=== PATIENT | female | born 1925 | race Caucasian/White ===

== ENCOUNTER 2016-10-28 10:52 | Emergency (ER) | payer OTHER ==
[2016-10-28 11:01] VITALS: TEMP 98.5; BMI 21.4
[2016-10-28] MEDS ORDERED: ACETAMINOPHEN 325 MG TABLET (FP) PO ONE (11:21)
[2016-10-28] MEDS ORDERED: ACETAMINOPHEN 325 MG TABLET (FP) ONE (11:21)
--- NOTE | 2016-10-28 11:41 | PDOC ---
History of Present Illness - General Chief Complaint: Pain, Acute Stated Complaint: RIGHT HAND SWELLING/PAIN Time Seen by Provider: 10/28/16 10:57 History Source: Patient, Family Exam Limitations: No Limitations - History of Present Illness Initial Comments: 10/28/16 11:35 89 yoF with h/o anemia, HTN, CKD ESRD ( MW/F) dialysis here wtih c/o right wrist pain. awoke at 1 this am with acutely swollen and painful right wrist. did not take any pain medication. per pt family at bedside, she has had a history of gout in the past many years ago. pt is unsure with whether she has had gout. no f/c no trauma. no cp or sob. last dialysis was friday ( 3 days ago) chart review of old records shows pt previously on colchicine. Past History - Past Medical History Allergies/Adverse Reactions: Allergies Allergy/AdvReac Type Severity Reaction Status Date / Time No Known Allergies Allergy Verified 10/28/16 10:53 Home Medications: Ambulatory Orders Furosemide [Lasix -] 40 mg PO DAILY 03/28/15 Carvedilol [Coreg] 25 mg PO BID 08/28/15 Sodium Bicarbonate 650 mg PO TID 08/28/15 Hydralazine HCl [Apresoline -] 25 mg PO TID #90 tablet 09/01/15 Prednisone [Deltasone -] 40 mg PO DAILY #7 tablet 10/28/16 Anemia: Yes Asthma: No Cancer: No Cardiac Disorders: Yes CVA: No COPD: No CHF: Yes Dementia: No Diabetes: No Dialysis: Yes GI Disorders: No Disorders: No HTN: Yes Hypercholesterolemia: Yes Kidney Stones: (RENAL INSUFF) Liver Disease: No Seizures: No Thyroid Disease: No Other medical history: DIALYSIS - Surgical History Abdominal Surgery: No Appendectomy: Yes Cardiac Surgery: No Cholecystectomy: No Lung Surgery: No Neurologic Surgery: No Orthopedic Surgery: No - Psycho/Social/Smoking Cessation Hx Anxiety: No Suicidal Ideation: No Smoking History: Never smoked Have you smoked in the past 12 months: No Number of Cigarettes Smoked Daily: 0 Hx Alcohol Use: No Drug/Substance Use Hx: No Substance Use Type: None Hx Substance Use Treatment: No Review of Systems - Review of Systems Constitutional: No: Chills, Diaphoresis, Fever HEENTM: No: Eye Pain Respiratory: No: Cough, Orthopnea, Shortness of Breath Cardiac (ROS): No: Chest Pain, Edema ABD/GI: No: Abdominal Distended : No: Burning, Dysuria Musculoskeletal: Yes: Joint Pain (right wrist pain) Integumentary: No: See HPI, Bruising, Change in Color Neurological: No: Headache, Numbness Psychiatric: No: Anxiety, Depression Hematologic/Lymphatic: Yes: Anemia. No: Symptoms Reported All Other Systems: Reviewed and Negative *Physical Exam - Vital Signs Last Vital Signs Temp Pulse Resp BP Pulse Ox 98.5 F 89 18 187/97 92 L 10/28/16 10:52 10/28/16 10:52 10/28/16 10:52 10/28/16 10:52 10/28/16 10:52 - Physical Exam General Appearance: Yes: Nourished, Appropriately Dressed, Other (awake and alert) HEENT: positive: Normal ENT Inspection, Normal Voice Neck: positive: Trachea midline Respiratory/Chest: positive: Lungs Clear, Normal Breath Sounds Cardiovascular: positive: Regular Rhythm, Regular Rate, S1, S2, Murmur (2/6 systolic murmur) Comments:: 10/28/16 11:38 2 + radial pulses bilaterally Gastrointestinal/Abdominal: positive: Normal Bowel Sounds, Flat, Soft. negative : Tender Musculoskeletal: positive: Other (right wrist wtih C[facility] wrist joint hot, erythematous, painful swollen. fingers n/v intact. elbow NT FROM) Extremity: positive: Normal Capillary Refill, Normal Inspection, Tender (right wrist) Integumentary: positive: Normal Color, Dry, Warm Neurologic: positive: grocery packer II-XII NML intact, Alert, Normal Mood/Affect ED Treatment Course - LABORATORY CBC & Chemistry Diagram: 10/28/16 11:28 10/28/16 11:28 - RADIOLOGY Radiology Studies Ordered: Category Date Time Status WRIST- RIGHT [RAD] Stat Radiology 10/28/16 11:21 Ordered - Medications Given in the ED: ED Medications Discontinued Medications Generic Name Dose Route Start Last Admin Trade Name Freq PRN Reason Stop Dose Admin Acetaminophen 650 mg 10/28/16 11:21 10/28/16 11:28 Tylenol - PO 10/28/16 11:22 650 mg ONCE ONE Administration Medical Decision Making - Medical Decision Making 10/28/16 11:39 89 yo F h/o ESRD, anemia HTN and likley gout ( per family hx and colchicine seen in chart review ) here wtih painful swollen right wrist joint. plan treat with short course of steroids, will avoid nsaids or colchicine due to renal disease. xray crp will confirm ho gout with Dr. Cherry 10/28/16 13:13 xray with degenerative changes. labs uric acid elevated. wbc normal. esr elevated as expected wtih age and gouty inflammation. d/w dr nicole, pt confirmed h/o gout. will start on steroids one week. and followup in office. *DC/Admit/Observation/Transfer Diagnosis at time of Disposition: Gouty arthropathy, unspecified, CKD (chronic kidney disease) stage 5, GFR less than 15 ml/min - Discharge Dispostion Condition at time of disposition: Stable Admit: No - Prescriptions Prescriptions: Prednisone [Deltasone -] 40 mg PO DAILY #7 tablet - Patient Instructions Printed Discharge Instructions: Gout Additional Instructions: take prednisone 40 mg daily x 7 days . this will help decrease the inflammation from gout. you can take tylenol 500 mg every 6 hours as needed for pain. follow up with dr. Nicole. call to schedule.
[2016-10-28 11:43] LABS: BASOPHIL 0.4 % (0-2.0); EOSINOPHIL 0.7 % (0-4.5); MCH 32.3 pg (25.7-33.7); MCHC 33.6 g/dl (32.0-36.0); MEAN CELL VOLUME 96.1 fl (80-96); MEAN PLT VOLUME 6.6 fl (7.5-11.1); NEUTROPHILS 72.9 % (42.8-82.8); PLATELET COUNT 219 K/MM3 (134-434); RDW 14.7 % (11.6-15.6); WHITE BLOOD COUNT 7.5 K/mm3 (4.0-10.8)
[2016-10-28 11:54] LABS: ALBUMIN 3.3 g/dl (3.5-5.0); ALK PHOS 66 U/L (32-92); ANION GAP 13 (8-16); BILIRUBIN,TOTAL 1.3 mg/dl (0.2-1.0); CALCIUM 8.8 mg/dl (8.4-10.2); CO2 20 mmol/L (22-28); COCKROFT - GAULT 4.6835; CREATININE 6.7 mg/dl (0.6-1.3); GLUCOSE,RANDOM 95 mg/dl (74-106); SGOT/AST 9 U/L (10-42); TOT PROT 7.1 g/dl (6.4-8.3); URIC ACID 7.3 mg/dl (2.6-7.2)
[2016-10-28 12:29] LABS: SGPT/ALT < 9 U/L (10-40)
[2016-10-28] MEDS ORDERED: predniSONE 20 MG TABLET (UD) PO ONE (13:08)
[2016-10-28] MEDS ORDERED: predniSONE 20 MG TABLET (UD) ONE (13:15)
[2016-10-28 13:19] VITALS: BP 156/82; PULSE 85
[2016-10-31 14:45] LABS: C-REACTIVE PROTEIN 5.6 MG/DL (0.00-0.3)
== END 2016-10-28 13:26 | disposition home or self-care (01) ==
LOC: FER 10:52
DX: M10.9 Gout, unspecified (principal); I12.0 Hypertensive chronic kidney disease with stage 5 chronic kidney disease or end stage renal disease; N18.5 Chronic kidney disease, stage 5; Z99.2 Dependence on renal dialysis
CPT/HCPCS: 36415; 73110-TC-RT; 80053; 84550; 85025; 85651; 86140; 99283-25

== ENCOUNTER 2016-12-02 20:10 | Emergency (ER) | payer OTHER ==
--- NOTE | 2016-12-02 20:16 | PDOC ---
History of Present Illness - General History Source: Patient Exam Limitations: No Limitations - History of Present Illness Initial Comments: The patient is an 89 yo F with a PMHx of anemia, HTN, CKD, Gout in toes, ESRD ( MW/F) dialysis here who presents with R hand swelling and pain since earlier today. Patient states she went to dialysis today and was referred to ED for possible infection of the R hand. Patient had similar symptoms approximately 1 month ago and was given prednisone for Gout. Patient denies fevers and chills. As per patients granddaughter, patient was started on dialysis approximately 1 year ago. Patient denies abdominal pain, nausea, vomiting and diarrhea. Patient denies changes in appetite. PCP: Dr. Palacios <Brittany Magdaleno - Last Filed: 12/02/16 21:04> <Audrey Bernstein - Last Filed: 12/03/16 00:37> - General Chief Complaint: Redness To Affected Area Stated Complaint: SWELLING TO RIGHT HAND X 2 DAYS Time Seen by Provider: 12/02/16 20:14 Past History <Brittany Magdaleno - Last Filed: 12/02/16 21:04> - Past Medical History Anemia: Yes Asthma: No Cancer: No Cardiac Disorders: Yes CVA: No COPD: No CHF: Yes Dementia: No Diabetes: No Dialysis: Yes GI Disorders: No Disorders: No HTN: Yes Hypercholesterolemia: Yes Kidney Stones: (RENAL INSUFF) Liver Disease: No Seizures: No Thyroid Disease: No - Surgical History Abdominal Surgery: No Appendectomy: Yes Cardiac Surgery: No Cholecystectomy: No Lung Surgery: No Neurologic Surgery: No Orthopedic Surgery: No - Psycho/Social/Smoking Cessation Hx Anxiety: No Suicidal Ideation: No Smoking History: Never smoked Have you smoked in the past 12 months: No Number of Cigarettes Smoked Daily: 0 Hx Alcohol Use: No Drug/Substance Use Hx: No Substance Use Type: None Hx Substance Use Treatment: No <Audrey Bernstein - Last Filed: 12/03/16 00:37> - Past Medical History Allergies/Adverse Reactions: Allergies Allergy/AdvReac Type Severity Reaction Status Date / Time No Known Allergies Allergy Verified 10/28/16 10:53 Home Medications: Ambulatory Orders Calcium Acetate 667 mg PO TIDAC tablet 11/05/16 Clindamycin HCl 300 mg PO TID #21 capsule 12/02/16 Review of Systems - Review of Systems Able to Perform ROS?: Yes Comments:: GENERAL/CONSTITUTIONAL: No fever or chills. No weakness. HEAD, EYES, EARS, NOSE AND THROAT: No change in vision. No ear pain or discharge. No sore throat. CARDIOVASCULAR: No chest pain or shortness of breath. RESPIRATORY: No cough, wheezing, or hemoptysis. GASTROINTESTINAL: No nausea, vomiting, diarrhea or constipation. GENITOURINARY: No dysuria, frequency, or change in urination. MUSCULOSKELETAL: R hand swelling and pain. No neck or back pain. SKIN: No rash NEUROLOGIC: No headache, vertigo, loss of consciousness, or change in strength/ sensation. ENDOCRINE: No increased thirst. No abnormal weight change. HEMATOLOGIC/LYMPHATIC: No anemia, easy bleeding, or history of blood clots. ALLERGIC/IMMUNOLOGIC: No hives or skin allergy. <Brittany Magdaleno - Last Filed: 12/02/16 21:04> *Physical Exam - Vital Signs Last Vital Signs Temp Pulse Resp BP Pulse Ox 97.4 F L 96 H 18 157/79 94 L 12/02/16 20:16 12/02/16 20:16 12/02/16 20:16 12/02/16 20:16 12/02/16 20:16 - Physical Exam Comments: GENERAL: The patient is awake, alert, and fully oriented, in no acute distress. HEAD: Normal with no signs of trauma. EYES: Pupils equal, round and reactive to light, extraocular movements intact, sclera anicteric, conjunctiva clear with no pallor. ENT: Ears normal, nares patent, oropharynx clear without exudates. Moist mucous membranes. NECK: Normal range of motion, supple without lymphadenopathy, JVD, or masses. LUNGS: Breath sounds equal, clear to auscultation bilaterally. No wheeze/ crackles. HEART: Regular rate and rhythm, normal S1 and S2 without murmur or rub. ABDOMEN: Soft/nontender/nondistended. BS wnl. No guarding or rebound. No palpable masses. No hepatosplenomegaly. EXTREMITIES: Normal range of motion, marked edema and erythema distally from distal forearm to fingertips on R hand. Strongly palpable radial pulse at the right wrist. No other inflammation, edema or tenderness in the remainder of the RUE. No clubbing or cyanosis. L hand unremarkable. NEUROLOGICAL: Cranial nerves II through XII grossly intact. Normal speech, gait not assessed. PSYCH: Normal mood, normal affect. SKIN: Warm, Dry, normal turgor, no rashes or lesions noted. <Brittany Magdaleno - Last Filed: 12/02/16 21:04> ED Treatment Course - LABORATORY CBC & Chemistry Diagram: 12/02/16 20:45 12/02/16 20:45 - ADDITIONAL ORDERS Additional order review: 12/02/16 20:45 RBC 3.90 MCV 96.2 H MCHC 34.1 RDW 14.6 MPV 7.1 L Neutrophils % 70.5 Lymphocytes % 18.8 Monocytes % 10.0 Eosinophils % 0.2 Basophils % 0.5 <Brittany Magdaleno - Last Filed: 12/02/16 21:04> - LABORATORY CBC & Chemistry Diagram: 12/02/16 20:45 12/02/16 20:45 <Audrey Bernstein - Last Filed: 12/03/16 00:37> Medical Decision Making - Medical Decision Making Documentation has been prepared under my direction and personally reviewed by me in its entirety. I attest that this documented accurately reflects all work, treatment, procedures and medical decision making performed by me. As noted above, this 89-year-old woman with hypertension and end-stage renal disease, dialyzed today and referred here by dialysis staff with erythema/pain / edema of the right hand. Patient had similar but much milder episode of these symptoms in the right hand/wrist approximately 1 month ago. She was seen here and did well after prednisone therapy for presumed acute gout attack. Current symptoms began today and are not associated with known injury/wound of the right hand or wrist. Patient has no fever/chills. She has a history of previous acute gout in bilateral feet. Exam as noted above. No indication of tenosynovitis or lymphangitis. However, because this episode is somewhat more severe than last month's, CBC/chemistry profile/uric acid/blood culture/lactic acid/CRP were sent Meanwhile, the patient given 500 mg of vancomycin IV for presumed cellulitis. Laboratory values reveal high normal white blood cell count (10,000); chemistry profile notable for mildly decreased potassium level (3.0) and mildly decreased sodium level (127) uric acid is normal at 2.4. Lactic acid is normal at 1.1 and CRP is markedly elevated at 13.9. Although uric acid could have been dialyzed out today with blood level subsequently normal tonight (and gout attack continuing), because the pain and inflammation is more severe as compared to last month's episode, will presume local cellulitis. Patient is improved clinically after vancomycin, with marked improvement in pain and wishes to go home. No evidence of systemic toxicity. Case discussed with Dr. Asencio from [facility] service, covering for Dr. Palacios. Because the patient will be dialyzed again within 36 hours, no supplementation of potassium will be given. Patient will be discharged home in the company of her granddaughter. Prescription for clindamycin 300 mg 3 times a day sent to the patient's pharmacy. No steroid therapy will be instituted now but patient strongly advised to follow -up with Dr. Palacios tomorrow in the office for reevaluation. Meanwhile, if patient develops worsening pain/swelling/redness or develops fever , she should return to the ER <Audrey Bernstein - Last Filed: 12/03/16 00:37> *DC/Admit/Observation/Transfer - Attestations Scribe Attestion: Documentation prepared by Brittany Magdaleno, acting as biomedical engineering technologist for Audrey Bernstein MD/DO. <Brittany Magdaleno - Last Filed: 12/02/16 21:04> <Audrey Bernstein - Last Filed: 12/03/16 00:37> Diagnosis at time of Disposition: Cellulitis of right hand - Discharge Dispostion Disposition: HOME Condition at time of disposition: Stable - Prescriptions Prescriptions: Clindamycin HCl 300 mg PO TID #21 capsule - Referrals Referrals: Maxi Palacios MD [Primary Care Provider] - 24 hours - Patient Instructions Printed Discharge Instructions: DI for Cellulitis -- Adult Additional Instructions: Keep right hand elevated Tylenol as needed for pain Clindamycin 300 mg 3 times a day for [address] Palacios tomorrow as discussed Return to ER immediately if pain/swelling worsens or fever develops
[2016-12-02 20:35] VITALS: BP 157/79; PULSE 96; TEMP 97.4; BMI 23.4
[2016-12-02 20:58] LABS: BASOPHIL 0.5 % (0-2.0); EOSINOPHIL 0.2 % (0-4.5); MCH 32.8 pg (25.7-33.7); MCHC 34.1 g/dl (32.0-36.0); MEAN CELL VOLUME 96.2 fl (80-96); MEAN PLT VOLUME 7.1 fl (7.5-11.1); NEUTROPHILS 70.5 % (42.8-82.8); PLATELET COUNT 199 K/MM3 (134-434); RDW 14.6 % (11.6-15.6)
[2016-12-02 21:08] LABS: ALBUMIN 3.7 g/dl (3.5-5.0); ALK PHOS 81 U/L (32-92); ANION GAP 13 (8-16); BILIRUBIN,TOTAL 1.5 mg/dl (0.2-1.0); CALCIUM 8.8 mg/dl (8.4-10.2); CO2 22 mmol/L (22-28); GLUCOSE,RANDOM 126 mg/dl (74-106); SGOT/AST 15 U/L (10-42); SGPT/ALT 13 U/L (10-40); TOT PROT 7.5 g/dl (6.4-8.3); URIC ACID 2.4 mg/dl (2.6-7.2)
[2016-12-02] MEDS ORDERED: VANCOMYCIN 500 MG in DEXTROSE 5%-WATER - 100 ML IVPB ONE (21:41)
[2016-12-02] MEDS ORDERED: VANCOMYCIN 500 MG VIAL (RESTRICTED TO ID ONLY) ONE (21:46)
[2016-12-02] MEDS ORDERED: ACETAMINOPHEN 325 MG TABLET (FP) PO ONE (23:40)
[2016-12-02] MEDS ORDERED: ACETAMINOPHEN 325 MG TABLET (FP) ONE (23:46)
== END 2016-12-02 23:57 | disposition home or self-care (01) ==
LOC: FER 20:10
DX: L03.113 Cellulitis of right upper limb (principal); I12.0 Hypertensive chronic kidney disease with stage 5 chronic kidney disease or end stage renal disease; N18.6 End stage renal disease; Z99.2 Dependence on renal dialysis; E78.00 Pure hypercholesterolemia, unspecified; D64.9 Anemia, unspecified; I50.9 Heart failure, unspecified
CPT/HCPCS: 36415; 80053; 83605; 84550; 85025; 86140; 87040; 99281-25

== ENCOUNTER 2016-12-05 12:48 | Inpatient (IN) | payer OTHER ==
--- NOTE | 2016-12-05 13:19 | PDOC ---
History of Present Illness - General Chief Complaint: Wound Infection Stated Complaint: WOUND INFECTION Time Seen by Provider: 12/05/16 13:19 - History of Present Illness Initial Comments: The patient is an 89 yo F with a PMHx of anemia, HTN, CKD, Gout, dementia, ESRD (M/W/F) dialysis here who presents with ankle and knee pain with some R hand swelling and pain since Friday. She was seen in the ED on 12/02/16 for right hand swelling then given Clindamycin for presumed cellulitis with noticed decrease in swelling. Since then she has developed bilateral ankle pain R>L and bilateral knee pain L>R . Family at bedside states that she has been bed ridden for the past two days and has been experiencing some chills, nausea, vomiting, decreased appetite, and difficulty ambulating in the setting of her arthralgias. She will be at home alone this morning and has difficulty even sitting up in bed. Her usual gout flares do happen in her ankles and her wrist. She is not on a controlling medication at home. She was not able to attend her dialysis session yesterday because of her joint pain. 12/05/16 14:12 Past History - Past Medical History Allergies/Adverse Reactions: Allergies Allergy/AdvReac Type Severity Reaction Status Date / Time No Known Allergies Allergy Verified 10/28/16 10:53 Home Medications: Ambulatory Orders Calcium Acetate 667 mg PO TIDAC tablet 11/05/16 Clindamycin HCl 300 mg PO TID #21 capsule 12/02/16 Anemia: Yes Asthma: No Cancer: No Cardiac Disorders: Yes CVA: No COPD: No CHF: Yes Dementia: No Diabetes: No Dialysis: Yes GI Disorders: No Disorders: No HTN: Yes Hypercholesterolemia: Yes Kidney Stones: (RENAL INSUFF) Liver Disease: No Seizures: No Thyroid Disease: No - Surgical History Abdominal Surgery: No Appendectomy: Yes Cardiac Surgery: No Cholecystectomy: No Lung Surgery: No Neurologic Surgery: No Orthopedic Surgery: No - Psycho/Social/Smoking Cessation Hx Anxiety: No Suicidal Ideation: No Smoking History: Never smoked Have you smoked in the past 12 months: No Number of Cigarettes Smoked Daily: 0 Hx Alcohol Use: No Drug/Substance Use Hx: No Substance Use Type: None Hx Substance Use Treatment: No Review of Systems - Review of Systems Constitutional: Yes: Chills, Loss of Appetite, Malaise, Weakness HEENTM: No: Blurred Vision, Recent change in vision Respiratory: No: Cough, Orthopnea, Shortness of Breath, Wheezing, Productive cough Cardiac (ROS): Yes: Lightheadedness. No: Chest Pain, Edema, Irregular Heart Rate ABD/GI: Yes: Nausea, Poor Appetite, Vomiting : No: Dysuria, Hematuria, Incontinence Musculoskeletal: Yes: Joint Pain, Joint Swelling, Joint Stiffness Integumentary: Yes: Erythema Neurological: No: Headache, Numbness, Paresthesia *Physical Exam - Physical Exam General Appearance: Yes: Nourished, Appropriately Dressed. No: Apparent Distress HEENT: positive: EOMI, RODRIGO, Normal Voice Neck: positive: Trachea midline, Normal Thyroid Respiratory/Chest: positive: Lungs Clear, Normal Breath Sounds, Other (SATing in mid 90s on room air but apparently her baseline.). negative: Chest Tender, Respiratory Distress, Accessory Muscle Use Cardiovascular: positive: Regular Rhythm, Regular Rate, S1, S2, Murmur, Systolic Murmur. negative: Edema Musculoskeletal: positive: Decreased Range of Motion, Other (TTP in left ankle joint greater than right ankle joint. Swelling and tenderness in left kneee greater than right knee without erythema or fluctuance noticed. ). negative: Normal Inspection Extremity: positive: Other (Swelling in ight hand ith erythema and warmth. Apparently reduced since Friday. No fluctuance. ). negative: Normal Capillary Refill, Normal Inspection, Normal Range of Motion Integumentary: positive: Erythema, Swelling. negative: Rash Neurologic: positive: Fully Oriented, Alert, Other (Has some recall issues consistent with her baseline dmentia. ) ED Treatment Course - LABORATORY CBC & Chemistry Diagram: 12/05/16 14:55 12/05/16 14:55 Medical Decision Making - Medical Decision Making 89 year old on ESRD with right hand cellulitis presenting with new joint pains concerning for gout vs. septic joints. Rectal temp 100 and tachyardic with fevers, chills, nausea, and vomiting. Also has a murmur further concerning for vegetation and therefore endocarditis. No previous echo to corroborate murmur. Patient also unable to care for herself in the current state given lack of home support and ability to ambulae 2/2 joint pain. CBC, BMP, Lactate, CXR< echo only significant for some slight elevation in WBC to 10.9, stable chemistries, normal CXR, relatively normal echo. Patient started on Vanc and, Zosyn after blood cultures sent. Will admit patient for further antibiotic administration and sepsis work up. Handed off to admitting team. 12/05/16 17:26 *DC/Admit/Observation/Transfer Diagnosis at time of Disposition: ESRD needing dialysis, Sepsis - Discharge Dispostion Condition at time of disposition: Stable Admit: Yes Decision to Admit order Date/Time: 12/05/16 17:34
[2016-12-05 13:22] VITALS: BMI 31.2
--- NOTE | 2016-12-05 13:26 | PDOC ---
Attending Attestation - Resident Resident Name: Radha Crouch - HPI HPI: 12/05/16 16:17 Pt presents to the ED complaining of fevers, myalgias and diffuse joint pain. History of ESRD on HD. Recently seen and treated for cellulitis of the R hand with PO antibiotics without improvement. - Physicial Exam PE: 12/05/16 16:30 + erythema and swelling of the R wrist. Full ROM. + swelling of both knees and both ankles with good passive ROM, no erythema and minimal tenderness. - Medical Decision Making 12/05/16 16:34 Pt presents to the ED complaining of fever and diffuse arthralgias. New systolic murmur on exam. Concern for endocarditis, sepsis, less likely PNA or septic joints. Will start broad spectrum antibiotics and admit to medicine. 12/05/16 16:58
[2016-12-05] MEDS ORDERED: PIPERACILLIN/TAZOB 2.25 GM 2.25 GM in DEXTROSE 5%-WATER - 50 ML IVPB SCH ×2 (15:00→22:00)
[2016-12-05] MEDS ORDERED: VANCOMYCIN 1,500 MG in DEXTROSE 5%-WATER - 500 ML IVPB ONE (15:05)
[2016-12-05 15:19] LABS: BASOPHIL 0.2 % (0-2.0); MCH 31.6 pg (25.7-33.7); MCHC 32.4 g/dl (32.0-36.0); MEAN CELL VOLUME 97.4 fl (80-96); MEAN PLT VOLUME 7.4 fl (7.5-11.1); NEUTROPHILS 79.8 % (42.8-82.8); PLATELET COUNT 185 K/MM3 (134-434); RDW 15.7 % (11.6-15.6); WHITE BLOOD COUNT 10.9 K/mm3 (4.0-10.0)
[2016-12-05 15:50] LABS: ALK PHOS 92 U/L (45-117); ANION GAP 13 (8-16); BILIRUBIN,TOTAL 0.6 mg/dL (0.2-1.0); CALCIUM 9.1 mg/dL (8.5-10.1); CO2 22 mmol/L (21-32); CREATININE 7.3 mg/dL (0.55-1.02); GLUCOSE,RANDOM 140 mg/dL (74-106); SGOT/AST 11 U/L (15-37); SGPT/ALT 13 U/L (12-78); TOT PROT 7.4 g/dl (6.4-8.2)
--- NOTE | 2016-12-05 18:09 | HP ---
CHIEF COMPLAINT: Joint pain PCP: Maxi Palacios HISTORY OF PRESENT ILLNESS: 89 y.o F with PMH of anemia, HTN, HLD, gout, dementia, ESRD (M/W/F) on dialysis presenting for 3 day history of right hand, bilateral knee, and bilateral ankle pain. Patient was seen in the ED on 12/02 for her right hand and given clindamycin for presumed cellulitis. After calling the pharmacy, patient never picked up clindamycin. Since then, she has developed bilateral ankle and knee pain. Her right hand pain has not improved. She states the pain has been intermittent, sharp, 10/10, and nonradiating. She takes aspirin, which has not helped. She reports chills, decreased appetite, and increased difficulty ambulating at home. Patient lives at home by herself, with her daughter living next door. She takes care of herself and has had no issues prior to this with ambulation or activities of daily living. ER course was notable for: (1)CXR, Echo (2)CBC, BMP (3)Started on Vancomycin/Zosyn Recent Travel: no PAST MEDICAL HISTORY: As stated above PAST SURGICAL HISTORY: Appendectomy Social History: Smoking: Denies Alcohol: Denies Drugs: Denies Family History: Allergies No Known Allergies Allergy (Verified 10/28/16 10:53) HOME MEDICATIONS: Home Medications Medication Instructions Recorded Calcium Acetate 667 mg PO TIDAC tablet 11/05/16 Clindamycin HCl 300 mg PO TID #21 capsule 12/02/16 REVIEW OF SYSTEMS CONSTITUTIONAL: Absent: fever, diaphoresis, malaise, weight change Present: chills, generalized weakness, loss of appetite HEENT: Absent: rhinorrhea, nasal congestion, throat pain, throat swelling, difficulty swallowing, mouth swelling, ear pain, eye pain, visual changes CARDIOVASCULAR: Absent: chest pain, syncope, palpitations, irregular heart rate, lightheadedness , peripheral edema RESPIRATORY: Absent: cough, shortness of breath, dyspnea with exertion, orthopnea, wheezing, stridor, hemoptysis GASTROINTESTINAL: Absent: abdominal pain, abdominal distension, nausea, vomiting, diarrhea, constipation, melena, hematochezia GENITOURINARY: Absent: dysuria, frequency, urgency, hesitancy, hematuria, flank pain, genital pain MUSCULOSKELETAL: Absent: myalgia, back pain, neck pain Present: arthralgia, joint swelling SKIN: Absent: rash, itching, pallor HEMATOLOGIC/IMMUNOLOGIC: Absent: easy bleeding, easy bruising, lymphadenopathy, frequent infections ENDOCRINE: Absent: unexplained weight gain, unexplained weight loss, heat intolerance, cold intolerance NEUROLOGIC: Absent: headache, focal weakness or paresthesias, dizziness, unsteady gait, seizure, mental status changes, bladder or bowel incontinence PSYCHIATRIC: Absent: anxiety, depression, suicidal or homicidal ideation, hallucinations. PHYSICAL EXAMINATION Vital Signs - 24 hr 12/05/16 12:48 Temperature 100 F H Pulse Rate 106 H Respiratory 18 Rate Blood Pressure 149/113 O2 Sat by Pulse 91 L Oximetry (%) GENERAL: Awake, alert, and fully oriented, in no acute distress. HEAD: Normal with no signs of trauma. EYES: Pupils equal, round and reactive to light, extraocular movements intact, sclera anicteric, conjunctiva clear. No lid lag. EARS, NOSE, THROAT: Oropharynx clear without exudates. Dry mucous membranes NECK: Normal range of motion, supple without lymphadenopathy, JVD, or masses. LUNGS: Breath sounds equal, clear to auscultation bilaterally. No wheezes, and no crackles. No accessory muscle use. HEART: Regular rate and rhythm, normal S1 and S2 +3/6 Systolic ejection murmur, No rub or gallop. ABDOMEN: Soft, nontender, not distended, normoactive bowel sounds, no guarding, no rebound, no masses. No hepatomegaly or splenomegaly. MUSCULOSKELETAL: Decreased range of motion at bilateral knees, ankles, and right hand MCP, PCP joints. +Bony tenderness bilateral knees, ankles, and right hand. UPPER EXTREMITIES: 2+ radial pulses, warm, well-perfused. No cyanosis. No clubbing. No peripheral edema. LOWER EXTREMITIES: 2+ dp pulses, warm, well-perfused. No calf tenderness. No peripheral edema. NEUROLOGICAL: Cranial nerves II-XII intact. Normal speech. No gait observed PSYCHIATRIC: Cooperative. Good eye contact. Appropriate mood and affect. SKIN: Warm, dry, normal turgor Laboratory Results - last 24 hr 12/05/16 12/05/16 12/05/16 14:55 14:55 14:55 WBC 10.9 H D RBC 3.79 Hgb 11.9 D Hct 36.9 D MCV 97.4 H MCH 31.6 MCHC 32.4 RDW 15.7 H Plt Count 185 MPV 7.4 L Neutrophils % 79.8 D Lymphocytes % 7.8 L D Monocytes % 12.2 H Eosinophils % 0.0 D Basophils % 0.2 Sodium 133 L Potassium 4.0 Chloride 98 Carbon Dioxide 22 D Anion Gap 13 BUN 74 H D Creatinine 7.3 H D Creat Clearance w eGFR 5.27 Random Glucose 140 H Lactic Acid 1.3 Calcium 9.1 D Total Bilirubin 0.6 D AST 11 L D ALT 13 D Alkaline Phosphatase 92 D Total Protein 7.4 D Albumin 3.0 L ASSESSMENT/PLAN: 89 year old F with a pmh of anemia, HTN, HLD, gout, dementia, ESRD (M/W/F) on dialysis presenting with 3 day history of joint pain admitted for possible gout #Joint tenderness- possible gout vs pseudogout given multiple joint involvement. Will consider cellulitis and rule it out. -UA -Urine culture -Uric acid level -CRP -ESR -1 dose of 0.6 mg Colchicine -Hand, knee, and ankle x rays ordered -Ortho consulted for possible arthrocentesis -Will hold off antibiotics right now. Patient received vanc/zosyn in the ED. -ID consulted to determine if antibiotics are needed. #ESRD on dialysis -Missed dialysis yesterday -// -Nephro consulted #HTN -Continue lasix 40 mg PO daily -Continue nifidipine ER 60 mg PO daily #HLD -Continue lipitor 10 mg PO hs #Depression -Continue mirtazapine 7.5 mg PO daily #FEN/GI -No fluids -hyponatremia, chronic vs. possible hypervolemic hyponatremia secondary to missed dialysis. Will continue to trend -Sodium controlled diet #PPX DVT-Heparin 5000 units sq Q8, SCDs GI-none #Deconditioning -PT consult placed Visit type - Emergency Visit Emergency Visit: Yes ED Registration Date: 12/05/16 Care time: The patient presented to the Emergency Department on the above date and was hospitalized for further evaluation of their emergent condition. - New Patient This patient is new to me today: Yes Date on this admission: 12/05/16 - Critical Care Critical Care patient: No
[2016-12-05] MEDS ORDERED: COLCHICINE 0.6 MG TABLET (FP) PO ONE ×2 (18:22→20:30)
--- NOTE | 2016-12-05 18:22 | PN ---
Teaching Attending Note Name of Resident: Malcolm Farias ATTENDING PHYSICIAN STATEMENT I saw and evaluated the patient. I reviewed the resident's note and discussed the case with the resident. I agree with the resident's findings and plan as documented. SUBJECTIVE: This is an 89-year-old woman with a history of HTN, hyperlipidemia, dementia, gout, ESRD on HD, anemia who comes to the ER for joint pains. She had been seen in the ER on 12/02 for right hand pain and she was prescribed Clindamycin for cellulitis. She did not fill the prescription. Since then, she has developed pain in her knees and ankles. OBJECTIVE: Vital Signs Period Temp Pulse Resp BP Sys/Wing Pulse Ox Last 24 Hr 100 F 106 18 149/113 91 HEART: S1S2, tachycardic LUNGS: CLEAR ABDOMEN: Soft, non-tender, non-distended, normal BS EXTREMITIES: No edema JOINTS: Swelling without erythema or tenderness of right 2nd, 3rd, 4th MCP joints. Swelling without erythema of both knees. Left knee extremely tender to light touch. Minimal tenderness of right knee. No swelling or erythema of ankles. Minimal tenderness of both ankles. ASSESSMENT AND PLAN: This is an 89-year-old woman with a history of HTN, hyperlipidemia, dementia, gout, ESRD on HD, anemia who presented to the ER with pain in her right hand, both knees and both ankles. 1. Polyarticular arthritis - Not typical presentation of gout - Possible pseudogout - Check uric acid, ESR, C-RP, JOSHUA, RF - Colchicine 0.6 mg PO x 1 - Check x-rays of right hand, both knees, both ankles - Does not appear to be infectious - Hold antibiotics - Arthrocentesis of knee 2. HTN - Continue Nifedipine, Lasix 3. Hyperlipidemia - Continue Lipitor 4. ESRD - Continue HD 5. Dementia with depression - Continue Remeron
--- NOTE | 2016-12-05 18:32 | HP ---
Admitting History and Physical - Primary Care Physician PCP: Maxi Palacios M - Admission Chief Complaint: joint pain and right hand redness History of Present Illness: 89F PMH of anemia, HTN, HLD, gout, dementia, ESRD on dialysis M/W/F presenting for 3 day history of right hand, bilateral knee, and bilateral ankle pain. Patient was seen in the ED on 12/02 for her right hand and given clindamycin for presumed cellulitis but patient never took it. Patient has now developed excrutiating 10/10 pain in the right hand bilaterral knees and bilateral ankles. She endorses chills, difficulty walking at home, and worsening pain in her joints. She states her hand erythema and swelling has improved despite not picking up the antibiotics from the pharmacy. Patient lives at home by herself and astates she is able to cook clean and shower herself. her daughter lives next door to her. She denies all other symptoms. History Source: Patient, Medical Record Limitations to Obtaining History: Clinical Condition - Past Medical History Cardiovascular: Yes: HTN, Hyperlipdemia Renal/: Yes: Renal Failure, Renal Calculi Heme/Onc: Yes: Anemia - Past Surgical History Past Surgical History: Yes: Appendectomy, Tonsillectomy - Smoking History Smoking history: Never smoked Have you smoked in the past 12 months: No Aproximately how many cigarettes per day: 0 - Alcohol/Substance Use Hx Alcohol Use: No Home Medications - Allergies Allergies/Adverse Reactions: Allergies Allergy/AdvReac Type Severity Reaction Status Date / Time No Known Allergies Allergy Verified 10/28/16 10:53 - Home Medications Home Medications: Ambulatory Orders Clindamycin HCl 300 mg PO TID #21 capsule 12/02/16 Nifedipine ER [Procardia Xl -] 60 mg PO DAILY 12/05/16 Family Disease History - Family Disease History Family Disease History: Other: Son (patient reports her son recently, but unclear as to cause) Review of Systems - Review of Systems Constitutional: reports: Chills, Loss of Appetite, Malaise Eyes: reports: No Symptoms HENT: reports: No Symptoms Neck: reports: No Symptoms Cardiovascular: reports: No Symptoms Respiratory: reports: No Symptoms Gastrointestinal: reports: No Symptoms Genitourinary: reports: No Symptoms Breasts: reports: No Symptoms Reported Musculoskeletal: reports: Joint Pain, Joint Swelling Integumentary: reports: Erythema (right hand) Physical Examination Vital Signs: Vital Signs Temperature 100 F H 12/05/16 12:48 Pulse Rate 106 H 12/05/16 12:48 Respiratory Rate 18 12/05/16 12:48 Blood Pressure 149/113 12/05/16 12:48 O2 Sat by Pulse Oximetry (%) 91 L 12/05/16 12:48 Constitutional: Yes: No Distress Eyes: Yes: EOM Intact HENT: Yes: Atraumatic, Normocephalic Neck: Yes: Supple, Trachea Midline Cardiovascular: Yes: Regular Rate and Rhythm, Murmur Respiratory: Yes: Regular, CTA Bilaterally Gastrointestinal: Yes: Normal Bowel Sounds, Soft. No: Tenderness Renal/: Yes: WNL Breast(s): Yes: WNL Musculoskeletal: Yes: Joint Swelling (RUE MCP and PIP joint swelling) Extremities: Yes: Erythema (right hand with swelling), Other (tenderness of right hand bilateral knees and bilateral ankles) Neurological: Yes: Alert Psychiatric: Yes: Alert Imaging - Results Chest X-ray: Report Reviewed, Image Reviewed Assessment/Plan 89 year old F with a pmh of anemia, HTN, HLD, gout, dementia, ESRD (M/W/F) on dialysis presenting with 3 day history of joint pain admitted for possible gout. Problem list: polyarthralgia gout vs pseudogout exacerbation ESRD on HD HTN HLD Depressin Hyponatremia Hyervolemic hypernatremia Admit to med/surg UA/Urine culture Uric acid level CRP/ESR 1 dose of 0.6 mg Colchicine-as patient is ESRD Hand, knee, and ankle x rays ordered Ortho consulted for possible arthrocentesis Will hold off antibiotics right now. Patient received vanc/zosyn in the ED. ID consulted to determine if antibiotics are needed. Nephrology consult for dialysis cotninue lasix continue nifedepine continue lipitor DVT PPx PT consult continue mirtazepine pain control PRN Case discussed with attending and medical team. Full H&P to follow Visit type - Emergency Visit Emergency Visit: Yes ED Registration Date: 12/05/16 Care time: The patient presented to the Emergency Department on the above date and was hospitalized for further evaluation of their emergent condition. - New Patient This patient is new to me today: Yes Date on this admission: 12/05/16 - Critical Care Critical Care patient: No
[2016-12-05 18:51] LABS: URIC ACID 5.6 mg/dL (2.6-7.2)
[2016-12-05 18:55] LABS: C-REACTIVE PROTEIN 23.9 MG/DL (0.00-0.3)
[2016-12-05] MEDS: ATORVASTATIN CA 10 MG TABLET (FP) PO SCH (21:24)
[2016-12-05] MEDS: MIRTAZAPINE 15 MG TABLET (FP) PO SCH (21:25)
[2016-12-06] MEDS ORDERED: PIPERACILLIN/TAZOB 2.25 GM/50 ML PRE-DOCKED BAG IVPB ONE (03:00)
[2016-12-06] MEDS: HEPARIN NA (PORCINE) 5,000 UNITS/ML 1ML VIAL SQ SCH ×3 (03:12→17:51)
[2016-12-06 07:43] LABS: MCH 32.7 pg (25.7-33.7); MCHC 33.5 g/dl (32.0-36.0); MEAN CELL VOLUME 97.8 fl (80-96); MEAN PLT VOLUME 7.3 fl (7.5-11.1); PLATELET COUNT 176 K/MM3 (134-434); RDW 15.6 % (11.6-15.6); WHITE BLOOD COUNT 10.6 K/mm3 (4.0-10.0)
[2016-12-06 08:02] LABS: ALBUMIN 2.6 g/dl (3.4-5.0)
[2016-12-06 08:15] LABS: ALK PHOS 85 U/L (45-117); ANION GAP 16 (8-16); BILIRUBIN,TOTAL 0.9 mg/dL (0.2-1.0); CALCIUM 8.4 mg/dL (8.5-10.1); CO2 22 mmol/L (21-32); GLUCOSE,RANDOM 89 mg/dL (74-106); MAGNESIUM 2.6 mg/dL (1.8-2.4); PHOSPHOROUS 5.9 mg/dL (2.5-4.9); SGOT/AST 14 U/L (15-37); SGPT/ALT 12 U/L (12-78); TOT PROT 6.8 g/dl (6.4-8.2)
--- NOTE | 2016-12-06 08:26 | PN ---
Progress Note, Physician Chief Complaint: ID Full note dictated ESRD with polyarticuliar joint pains right wrist left knee and bilateral ankles - Current Medication List Current Medications: Active Medications Atorvastatin Calcium (Lipitor -) 10 mg PO HS PIERCE Last Admin: 12/05/16 21:24 Dose: 10 mg Furosemide (Lasix -) 40 mg PO DAILY PIERCE Heparin Sodium (Porcine) (Heparin -) 5,000 unit SQ Q8H-IV PIERCE Last Admin: 12/06/16 03:12 Dose: 5,000 unit Piperacillin Sod/Tazobactam (Sod 2.25 gm/ Dextrose) 50 mls @ 100 mls/hr IVPB BID PIERCE PRN Reason: Protocol Mirtazapine (Remeron -) 7.5 mg PO HS PIERCE Last Admin: 12/05/16 21:25 Dose: 7.5 mg Nifedipine (Procardia Xl -) 60 mg PO DAILY PIERCE - Objective Vital Signs: Vital Signs Temperature 98.2 F 12/06/16 07:52 Pulse Rate 76 12/06/16 07:52 Respiratory Rate 18 12/06/16 07:52 Blood Pressure 136/67 12/06/16 07:52 O2 Sat by Pulse Oximetry (%) 100 12/05/16 22:35 Constitutional: Yes: No Distress Labs: CBC, BMP 12/06/16 06:00 Problem List - Problems (1) ESRD needing dialysis Code(s): N18.6 - END STAGE RENAL DISEASE (2) Acute gout Code(s): M10.9 - GOUT, UNSPECIFIED (3) Endocarditis Code(s): I38 - ENDOCARDITIS, VALVE UNSPECIFIED Assessment/Plan Microbiology Laboratory Tests 12/05/16 12/05/16 12/05/16 14:55 14:55 15:12 WBC 10.9 H D RBC 3.79 Hct 36.9 D Plt Count 185 ESR Uric Acid 5.6 Total Bilirubin 0.6 D AST 11 L D ALT 13 D Alkaline Phosphatase 92 D C-Reactive Protein 23.9 H D 12/05/16 15:12 WBC RBC Hct Plt Count ESR 117 H Uric Acid Total Bilirubin AST ALT Alkaline Phosphatase C-Reactive Protein Assessment Suspect acute gouty arthritis rather then endocarditis Plan JOSHUA Latex Rheumatology consult and aspirate her knee crystals and cultures NO antibiotics Blood neg this am ECHO Given steroids Bandar RAO
[2016-12-06 09:44] LABS: CREATININE 7.9 mg/dL (0.55-1.02)
[2016-12-06] MEDS: FUROSEMIDE 40 MG TABLET (FP) PO SCH (10:16)
[2016-12-06] MEDS: methylPREDNISolone NA SUCC 40 MG/1 ML VIAL IVPB SCH ×3 (10:16→17:01)
[2016-12-06] MEDS: NIFEdipine E.R 60 MG TABLET (UD) PO SCH (10:16)
--- NOTE | 2016-12-06 10:18 | CON.NEP ---
Consult Consult Specialty:: nephrology Reason for Consultation:: esrd - History of Present Illness Chief Complaint: cant walk History of Present Illness: This is am 89 year old lady with a PMHx of anemia, HTN, CKD, Gout, dementia, ESRD (M/W/F) dialysis. She is a poor historian and is unable to tell me much. She however complains of inability to walk and apparently has been having pain in her hands and feet. She denies other complaints and appears comfortable otherwise - History Source History Provided By: Medical Record Limitations to Obtaining History: Dementia - Past Medical History Cardio/Vascular: Yes: HTN, Hyperlipdemia Renal/: Yes: Renal Failure, Renal Calculi - Past Surgical History Past Surgical History: Yes: Appendectomy, Tonsillectomy - Alcohol/Substance Use Hx Alcohol Use: No - Smoking History Smoking history: Never smoked Have you smoked in the past 12 months: No Aproximately how many cigarettes per day: 0 Home Medications - Allergies Allergies/Adverse Reactions: Allergies Allergy/AdvReac Type Severity Reaction Status Date / Time No Known Allergies Allergy Verified 10/28/16 10:53 - Home Medications Home Medications: Ambulatory Orders Clindamycin HCl 300 mg PO TID #21 capsule 12/02/16 Nifedipine ER [Procardia Xl -] 60 mg PO DAILY 12/05/16 Family Disease History - Family Disease History Family Disease History: Other: Son (patient reports her son recently, but unclear as to cause) Review of Systems Unable to obtain ROS, reason: dementia - Review of Systems Constitutional: reports: No Symptoms Eyes: reports: No Symptoms HENT: reports: No Symptoms Neck: reports: No Symptoms Cardiovascular: reports: No Symptoms Respiratory: reports: No Symptoms Gastrointestinal: reports: No Symptoms Genitourinary: reports: No Symptoms Breasts: reports: No Symptoms Reported Musculoskeletal: reports: Joint Pain, Joint Swelling Integumentary: reports: No Symptoms Neurological: reports: No Symptoms Endocrine: reports: No Symptoms Hematology/Lymphatic: reports: No Symptoms Psychiatric: reports: No Symptoms Nephrology Consult - Height Height: 5 ft - Weight Weight: 160 lb - BMI Body Mass Index (BMI): 31.2 - Lab Results CBC,BMP: CBC, BMP 12/06/16 06:00 12/06/16 06:00 Anion Gap: Anion Gap Anion Gap 16 (8-16) 12/06/16 06:00 - Imaging Chest X-ray: Report Reviewed - Physical Examination Vital Signs: Vital Signs Temperature 98.2 F 12/06/16 09:00 Pulse Rate 85 12/06/16 09:00 Respiratory Rate 18 12/06/16 09:00 Blood Pressure 139/58 12/06/16 09:00 O2 Sat by Pulse Oximetry (%) 100 12/05/16 22:35 Constitutional: Yes: Well Nourished, No Distress Eyes: Yes: Conjunctiva Clear HENT: Yes: Atraumatic, Normocephalic Neck: Yes: Supple, Trachea Midline Cardiovascular: Yes: Regular Rate and Rhythm, Murmur. 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
--- NOTE | 2016-12-06 10:21 | EKG ---
Test Reason : Blood Pressure : / mmHG Vent. Rate : 104 BPM Atrial Rate : 104 BPM P-R Int : 132 ms QRS Dur : 092 ms QT Int : 346 ms P-R-T Axes : 039 -07 017 degrees QTc Int : 454 ms SINUS TACHYCARDIA POSSIBLE LEFT ATRIAL ENLARGEMENT NONSPECIFIC ST AND T WAVE ABNORMALITY Confirmed by MD FRANCISCO, PRAVEEN ([id number]) on 12/06/2016 10:20:57 AM Referred By: Confirmed By:PRAVEEN SINGH MD
--- NOTE | 2016-12-06 13:48 | PN ---
Teaching Attending Note Name of Resident: Malcolm Farias ATTENDING PHYSICIAN STATEMENT I saw and evaluated the patient. I reviewed the resident's note and discussed the case with the resident. I agree with the resident's findings and plan as documented. SUBJECTIVE: Patient complains of pain in her hands and knees. OBJECTIVE: Vital Signs Period Temp Pulse Resp BP Sys/Wing Pulse Ox Last 24 Hr 98.2 F-98.9 F 76-87 18-18 130-140/58-76 94-100 HEART: S1S2, RRR LUNGS: Clear ABDOMEN: Soft, non-tender, non-distended, normal BS EXTREMITIES: No edema JOINTS: Decreased swelling of right 2nd, 3rd, 4th MCP joints. Swelling without erythema of both knees. Left knee tender to minimal touch. No tenderness of right knee. No swelling, erythema or tenderness of ankles ASSESSMENT AND PLAN: This is an 89-year-old woman with a history of HTN, hyperlipidemia, dementia, gout, ESRD on HD, anemia who presented to the ER with pain in her right hand, both knees and both ankles. 1. Polyarticular arthritis - Does not appear to be infectious - Hold antibiotics - Uric acid normal - ESR 117 (102 on 10/28/16), C-RP 23.9 (14.6 on 12/02/16, 5.6 on 10/28/16), RF negative - Check JOSHUA - Given Colchicine 0.6 mg PO x 1 - SoluMedrol started - X-rays of right hand show mild to moderate osteoarthritis and mild soft tissue swelling - X-rays of left knee show mild to moderate osteoarthritis with suprapatellar soft tissue swelling and possible joint effusion - X-rays of right knee show mild to moderate osteoarthritis - X-rays of right ankle show osteopenia - X-rays of left ankle show possible non-displaced posterior tibial fracture - Orthopedic surgery, rheumatology consults - Possible arthrocentesis of left knee 2. HTN - Continue Nifedipine, Lasix 3. Hyperlipidemia - Continue Lipitor 4. ESRD - Continue HD 5. Dementia with depression - Continue Remeron
--- NOTE | 2016-12-06 15:10 | CONS ---
DATE OF CONSULTATION: DATE OF DICTATION: 12/06/2016 INFECTIOUS DISEASE CONSULTATION HISTORY OF PRESENT ILLNESS: This is an 89-year-old female with known end-stage renal disease, whom I am asked to see with a 3 to 4 day history of polyarticular joint pains. She was apparently seen on December 02 in the Emergency Department for swelling and presumed "cellulitis of the right wrist," for which she was given a prescription for clindamycin. Subsequently she developed bilateral ankle and knee pains, and the right hand continued to be painful as well. The patient denied any fever and had only 1 temperature of 100 degrees on admission. Subsequently she has been afebrile. She is a poor historian, who currently notes no complaints of any kind. She denies any chills, abdominal pain, urinary complaints, and is on dialysis 3 times a week through a fistula in her left arm. A set of blood cultures was obtained on admission, and she was given a dose of vancomycin and Zosyn, and I am asked to see her for further evaluation and treatment. Note that according to the admitting history, she has a prior history of gout as well as dementia. PAST MEDICAL HISTORY: As noted above. CURRENT MEDICATIONS: Procardia, Remeron, Lasix. ALLERGIES: None known. SOCIAL HISTORY: Lives at home. No history of alcohol use. Nonsmoker. FAMILY HISTORY: Patient unable to offer. REVIEW OF SYSTEMS: Respiratory: No cough, shortness of breath or hemoptysis. Cardiac: No chest pain, palpitations or syncope. Gastrointestinal: No nausea, vomiting, abdominal pain, diarrhea, blood per rectum. Genitourinary: End-stage renal disease. No dysuria, hematuria or incontinence. PHYSICAL EXAMINATION: General: She was an alert pleasant woman in no acute distress. Vital Signs: Temperature 98.2, pulse 76, blood pressure 136/67, respirations 18. HEENT: Conjunctivae clear, with no conjunctival petechiae noted. Neck: Supple. Lungs: Clear to auscultation. Heart: S1, S2, with a grade 3/6 systolic ejection murmur, heard best at the lower left sternal border, right 2nd intercostal space. Abdomen: Soft, nontender, without hepatosplenomegaly. Extremities: Swelling of the left knee, with tenderness. Right wrist tenderness, swelling and redness. Bilateral mild ankle swelling with bilateral tenderness. DIAGNOSTIC STUDIES: White count 10.9, hemoglobin 11.9, platelets 185, ESR 117. BUN 74, creatinine 7.3. Liver enzymes within normal limits. CRP 24. Uric acid 5.6. Two sets of blood cultures pending, no growth. ASSESSMENT: Acute gouty arthritis suspected, less likely endocarditis given the multiple joints involved. Certainly she is at high risk for bacteremia and endocarditis being on dialysis, but thus far her blood cultures are no growth and she has no fever at this time. RECOMMENDATIONS: I would not give her any antibiotics at the current time. Instead will treat her for gout with a dose of steroids to begin, and get Rheumatology evaluation, to consider aspiration of the left knee to document gouty arthritis. An JOSHUA and latex will be obtained. NING CALHOUN M.D. JENNIFER/[id number]
--- NOTE | 2016-12-06 16:33 | PN ---
Physical Exam: SUBJECTIVE: Patient seen and examined No acute events overnight. Patient is poor historian. OBJECTIVE: Vital Signs Period Temp Pulse Resp BP Sys/Wing Pulse Ox Last 24 Hr 98.1 F-98.9 F 76-87 17-18 130-140/58-76 94-100 GENERAL: Awake, alert, and fully oriented, in no acute distress. HEAD: Normal with no signs of trauma. EYES: Extraocular movements intact, sclera anicteric, conjunctiva clear. No lid lag. EARS, NOSE, THROAT: Oropharynx clear without exudates. Dry mucous membranes NECK: Normal range of motion, supple without lymphadenopathy, JVD, or masses. LUNGS: Breath sounds equal, clear to auscultation bilaterally. No wheezes, and no crackles. No accessory muscle use. HEART: Regular rate and rhythm, normal S1 and S2 +3/6 Systolic ejection murmur, No rub or gallop. ABDOMEN: Soft, nontender, not distended, normoactive bowel sounds, no guarding, no rebound, no masses. No hepatomegaly or splenomegaly. MUSCULOSKELETAL: Decreased range of motion at bilateral knees, ankles, and right hand MCP, PCP joints. +Bony tenderness bilateral knees, ankles, and right hand. R hand- +Erythema and warmth UPPER EXTREMITIES: 2+ radial pulses, warm, well-perfused. No cyanosis. No clubbing. No peripheral edema. LOWER EXTREMITIES: 1+ dp pulses, warm, well-perfused. No calf tenderness. No peripheral edema. NEUROLOGICAL: Cranial nerves II-XII intact. Normal speech. No gait observed PSYCHIATRIC: Cooperative. Good eye contact. Appropriate mood and affect. SKIN: Warm, dry, normal turgor Laboratory Results - last 24 hr 12/06/16 12/06/16 12/06/16 06:00 06:00 06:00 WBC 10.6 H RBC 3.52 L Hgb 11.5 Hct 34.4 MCV 97.8 H MCH 32.7 MCHC 33.5 RDW 15.6 Plt Count 176 MPV 7.3 L Sodium 135 L Potassium 4.1 Chloride 97 L Carbon Dioxide 22 Anion Gap 16 BUN 81 H Creatinine 7.9 H* Creat Clearance w eGFR 4.81 Random Glucose 89 D Calcium 8.4 L Phosphorus 5.9 H Magnesium 2.6 H D Total Bilirubin 0.9 D AST 14 L D ALT 12 Alkaline Phosphatase 85 Total Protein 6.8 Albumin 2.6 L Rheumatoid Factor < 10.0 Cancelled Active Medications Generic Name Dose Route Start Last Admin Trade Name No PRN Reason Stop Dose Admin Atorvastatin Calcium 10 mg 12/05/16 22:00 12/05/16 21:24 Lipitor - PO 10 mg HS PIERCE Administration Furosemide 40 mg 12/06/16 10:00 12/06/16 10:16 Lasix - PO 40 mg DAILY PIERCE Administration Heparin Sodium (Porcine) 5,000 unit 12/06/16 02:00 12/06/16 10:16 Heparin - SQ 5,000 unit Q8H-IV PIERCE Administration Heparin Sodium (Porcine) 1,000 unit 12/06/16 10:32 Heparin - IVPUSH 12/06/16 10:33 ONCE ONE Methylprednisolone Sodium Succinate 40 mg 12/06/16 10:00 12/06/16 10:16 Solu-Medrol - IVPB 40 mg Q8H-IV PIERCE Administration Mirtazapine 7.5 mg 12/05/16 22:00 12/05/16 21:25 Remeron - PO 7.5 mg HS PIERCE Administration Nifedipine 60 mg 12/06/16 10:00 12/06/16 10:16 Procardia Xl - PO 60 mg DAILY PIERCE Administration ASSESSMENT/PLAN: 89 year old F with a pmh of anemia, HTN, HLD, gout, dementia, ESRD (M/W/F) on dialysis presenting with 3 day history of joint pain admitted for possible gout #Joint tenderness- possible gout vs pseudogout given multiple joint involvement. Will consider cellulitis and rule it out. -UA, culture pending -Uric acid wnl -CRP/ESR increased -X-rays show nondisplaced posterior tibial fracture and mild to moderate osteoarthritic changes with soft tissue swelling and joint effusions. -Rheumatology consulted -Will hold off antibiotics right now. Patient received vanc/zosyn in the ED. -ID recommended JOSHUA latex, No abx, echo, and steroids -Started on salumederol 40 mg IVPB Q8h #ESRD on dialysis -Missed dialysis yesterday -M/W/F -Nephro will try to plan HD today -Tried to call [facility], not patient's dialysis center. Will call daughter tomorrow to confirm patient's center. LUIGI [phone] #HTN -Continue lasix 40 mg PO daily -Continue nifidipine ER 60 mg PO daily #HLD -Continue lipitor 10 mg PO hs #Depression -Continue mirtazapine 7.5 mg PO daily #FEN/GI -No fluids -hyponatremia, chronic vs. possible hypervolemic hyponatremia secondary to missed dialysis. Will continue to trend -Sodium controlled diet #PPX DVT-Heparin 5000 units sq Q8, SCDs GI-none #Deconditioning -PT consult placed Visit type - Emergency Visit Emergency Visit: No - New Patient This patient is new to me today: No - Critical Care Critical Care patient: No
[2016-12-06] MEDS ORDERED: HEPARIN NA (PORCINE) 5,000 UNITS/ML 1ML VIAL IVPUSH ONE (17:45)
[2016-12-06] MEDS: ATORVASTATIN CA 10 MG TABLET (FP) PO SCH (22:56)
[2016-12-06] MEDS: MIRTAZAPINE 15 MG TABLET (FP) PO SCH (22:56)
[2016-12-07] MEDS: methylPREDNISolone NA SUCC 40 MG/1 ML VIAL IVPB SCH ×3 (02:15→18:21)
[2016-12-07] MEDS: HEPARIN NA (PORCINE) 5,000 UNITS/ML 1ML VIAL SQ SCH ×3 (02:15→18:21)
[2016-12-07 08:34] LABS: BASOPHIL 0.1 % (0-2.0); MCH 32.5 pg (25.7-33.7); MCHC 33.7 g/dl (32.0-36.0); MEAN CELL VOLUME 96.5 fl (80-96); MEAN PLT VOLUME 7.6 fl (7.5-11.1); NEUTROPHILS 88.1 % (42.8-82.8); PLATELET COUNT 198 K/MM3 (134-434); RDW 15.4 % (11.6-15.6); WHITE BLOOD COUNT 9.2 K/mm3 (4.0-10.0)
[2016-12-07 08:59] LABS: ANION GAP 12 (8-16); CALCIUM 8.8 mg/dL (8.5-10.1); CO2 29 mmol/L (21-32); CREATININE 4.8 mg/dL (0.55-1.02); GLUCOSE,RANDOM 159 mg/dL (74-106); MAGNESIUM 2.4 mg/dL (1.8-2.4); PHOSPHOROUS 4.6 mg/dL (2.5-4.9)
--- NOTE | 2016-12-07 09:15 | PN ---
Progress Note, Physician Chief Complaint: ID Doing better however very confused in restraints Steroids IV Unable to get rheum consult as he is away - Current Medication List Current Medications: Active Medications Atorvastatin Calcium (Lipitor -) 10 mg PO HS [facility] Last Admin: 12/06/16 22:56 Dose: 10 mg Furosemide (Lasix -) 40 mg PO DAILY [facility] Last Admin: 12/06/16 10:16 Dose: 40 mg Heparin Sodium (Porcine) (Heparin -) 5,000 unit SQ Q8H-IV PIERCE Last Admin: 12/07/16 02:15 Dose: 5,000 unit Methylprednisolone Sodium Succinate (Solu-Medrol -) 40 mg IVPB Q8H-IV PIERCE Last Admin: 12/07/16 02:15 Dose: 40 mg Mirtazapine (Remeron -) 7.5 mg PO HS [facility] Last Admin: 12/06/16 22:56 Dose: 7.5 mg Nifedipine (Procardia Xl -) 60 mg PO DAILY [facility] Last Admin: 12/06/16 10:16 Dose: 60 mg - Objective Vital Signs: Vital Signs Temperature 97.7 F 12/07/16 07:53 Pulse Rate 82 12/07/16 07:53 Respiratory Rate 20 12/07/16 07:53 Blood Pressure 127/65 12/07/16 07:53 O2 Sat by Pulse Oximetry (%) 96 12/06/16 21:00 Constitutional: Yes: Well Nourished, No Distress HENT: Yes: WNL, Atraumatic Neck: Yes: WNL, Supple Cardiovascular: Yes: Murmur, S1, S2 Respiratory: Yes: WNL, Regular, CTA Bilaterally Gastrointestinal: Yes: WNL, Normal Bowel Sounds, Soft Extremities: Yes: Other (LEft knee less tender) Labs: CBC, BMP 12/07/16 06:55 Problem List - Problems (1) ESRD needing dialysis Code(s): N18.6 - END STAGE RENAL DISEASE (2) Acute gout Code(s): M10.9 - GOUT, UNSPECIFIED (3) Endocarditis Code(s): I38 - ENDOCARDITIS, VALVE UNSPECIFIED Assessment/Plan Laboratory Tests 12/05/16 12/06/16 12/07/16 15:12 06:00 06:55 WBC Hgb Plt Count C-Reactive Protein 23.9 H D Rheumatoid Factor < 10.0 JOSHUA Screen Pending 12/07/16 06:55 WBC 9.2 Hgb 11.3 Plt Count 198 C-Reactive Protein Rheumatoid Factor JOSHUA Screen Assessment ESRD with acute gouty arthritis improving Confusion ? steroids contributing Plan Consider discharge on prednisone as per teaching service waith out pt rhuematology evaluation Bandar RAO
--- NOTE | 2016-12-07 09:53 | PN ---
Progress Note (short form) - Note Progress Note: RENAL Pt is awake and alert angry that she is in restraints c/o inability to walk due to pain Last Vital Signs Temp Pulse Resp BP Pulse Ox 97.7 F 82 20 127/65 96 12/07/16 07:53 12/07/16 07:53 12/07/16 07:53 12/07/16 07:53 12/06/16 21:00 lungs clear cvs s1s2 rr+darno abd soft, distended, not tender ext no edema neuro poor memory, alert CBC, BMP 12/07/16 06:55 12/07/16 06:55 Current Medications Generic Name Dose Route Start Last Admin Trade Name Abdiq PRN Reason Stop Dose Admin Atorvastatin Calcium 10 mg 12/05/16 22:00 12/06/16 22:56 Lipitor - PO 10 mg HS PIERCE Administration Furosemide 40 mg 12/06/16 10:00 12/06/16 10:16 Lasix - PO 40 mg DAILY PIERCE Administration Heparin Sodium (Porcine) 5,000 unit 12/06/16 02:00 12/07/16 02:15 Heparin - SQ 5,000 unit Q8H-IV PIERCE Administration Methylprednisolone Sodium Succinate 40 mg 12/06/16 10:00 12/07/16 02:15 Solu-Medrol - IVPB 40 mg Q8H-IV PIERCE Administration Mirtazapine 7.5 mg 12/05/16 22:00 12/06/16 22:56 Remeron - PO 7.5 mg HS PIERCE Administration Nifedipine 60 mg 12/06/16 10:00 12/06/16 10:16 Procardia Xl - PO 60 mg DAILY PIERCE Administration IMPRESSION Polyarthritis esrd HTN 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
[2016-12-07] MEDS: FUROSEMIDE 40 MG TABLET (FP) PO SCH (10:50)
[2016-12-07] MEDS: NIFEdipine E.R 60 MG TABLET (UD) PO SCH (10:50)
--- NOTE | 2016-12-07 15:10 | PN ---
Progress Note (short form) - Note Progress Note: states pain in knees have significantly improved. unable to ambulate, due to pain. denies Cp, SOB,fever, chills, N/V/C/D does not recall becoming agitated this morning. Current Medications Generic Name Dose Route Start Last Admin Trade Name No PRN Reason Stop Dose Admin Atorvastatin Calcium 10 mg 12/05/16 22:00 12/06/16 22:56 Lipitor - PO 10 mg HS PIERCE Administration Furosemide 40 mg 12/06/16 10:00 12/07/16 10:50 Lasix - PO 40 mg DAILY PIERCE Administration Heparin Sodium (Porcine) 5,000 unit 12/06/16 02:00 12/07/16 10:50 Heparin - SQ 5,000 unit Q8H-IV PIERCE Administration Methylprednisolone Sodium Succinate 40 mg 12/06/16 10:00 12/07/16 10:50 Solu-Medrol - IVPB 40 mg Q8H-IV PIERCE Administration Mirtazapine 7.5 mg 12/05/16 22:00 12/06/16 22:56 Remeron - PO 7.5 mg HS PIERCE Administration Nifedipine 60 mg 12/06/16 10:00 12/07/16 10:50 Procardia Xl - PO 60 mg DAILY PIERCE Administration Last Vital Signs Temp Pulse Resp BP Pulse Ox 97 F L 83 20 137/78 96 12/07/16 10:00 12/07/16 10:00 12/07/16 10:00 12/07/16 10:00 12/06/16 21:00 General NAD A&O x2 (self and location CV S1 S2 + Extremities decreased ROM B/L knees CBCD WBC 9.2 K/mm3 (4.0-10.0) 12/07/16 06:55 RBC 3.48 M/mm3 (3.60-5.2) L 12/07/16 06:55 Hgb 11.3 GM/dL (10.7-15.3) 12/07/16 06:55 Hct 33.5 % (32.4-45.2) 12/07/16 06:55 MCV 96.5 fl (80-96) H 12/07/16 06:55 MCHC 33.7 g/dl (32.0-36.0) 12/07/16 06:55 RDW 15.4 % (11.6-15.6) 12/07/16 06:55 Plt Count 198 K/MM3 (134-434) 12/07/16 06:55 MPV 7.6 fl (7.5-11.1) 12/07/16 06:55 CMP Sodium 138 mmol/L (136-145) 12/07/16 06:55 Potassium 3.6 mmol/L (3.5-5.1) 12/07/16 06:55 Chloride 97 mmol/L (98-107) L 12/07/16 06:55 Carbon Dioxide 29 mmol/L (21-32) D 12/07/16 06:55 Anion Gap 12 (8-16) 12/07/16 06:55 BUN 45 mg/dL (7-18) H D 12/07/16 06:55 Creatinine 4.8 mg/dL (0.55-1.02) H D 12/07/16 06:55 Creat Clearance w eGFR 4.81 (>60) 12/06/16 06:00 Calcium 8.8 mg/dL (8.5-10.1) 12/07/16 06:55 Total Bilirubin 0.9 mg/dL (0.2-1.0) D 12/06/16 06:00 AST 14 U/L (15-37) L D 12/06/16 06:00 ALT 12 U/L (12-78) 12/06/16 06:00 Alkaline Phosphatase 85 U/L (45-117) 12/06/16 06:00 Total Protein 6.8 g/dl (6.4-8.2) 12/06/16 06:00 Albumin 2.6 g/dl (3.4-5.0) L 12/06/16 06:00 A/P 89-year-old woman with a history of HTN, hyperlipidemia, dementia, gout, ESRD on HD, anemia who presented to the ER with pain in her right hand, both knees and both ankles. 1. Polyarticular arthritis- no signs of infection. afebrile, mild leukoctysis on presentation now resolved. Uric acid normal (however can be pseudogout). received colchicine x1. off abx. elevated ESR/CRP with negative RF. JOSHUA pending. would benefit from Rheum input, unfortunately he is away. awaiting orthopedic consult for L ankle non-displaced tibial fx and effusion. can be tapped with possible intra-articular steroid injection, although it is polyarticular since the L knee appears to be the most painful. will decrease solumedrol to 20mg Q8H. will hold further colchicine since pain is now controlled. 2. Agitation- likely steroid induced. currently pt is calm and cooperative. son- in-law present at bedside and states that she is at baseline. ricardo rocío applied this AM and now removed. will monitor closely. hopefully to improve as steroid dose reduced 3. HTN-controlled. Continue Nifedipine, Lasix 4. Hyperlipidemia- Continue Lipitor 5. ESRD- Continue HD per normal schedule 6. Dementia with depression- Continue Remeron 7. PT assessment on friday. will likely require TIAN when medically optimized. son-in-law in agreement Visit type - Emergency Visit Emergency Visit: Yes ED Registration Date: 12/05/16 Care time: The patient presented to the Emergency Department on the above date and was hospitalized for further evaluation of their emergent condition. - New Patient This patient is new to me today: Yes Date on this admission: 12/07/16 - Critical Care Critical Care patient: No - Discharge Referral Referred to [facility] Med P.C.: No
[2016-12-07] MEDS: ATORVASTATIN CA 10 MG TABLET (FP) PO SCH (21:32)
[2016-12-07] MEDS: MIRTAZAPINE 15 MG TABLET (FP) PO SCH (21:32)
[2016-12-08] MEDS: HEPARIN NA (PORCINE) 5,000 UNITS/ML 1ML VIAL SQ SCH ×3 (02:07→18:37)
[2016-12-08] MEDS: methylPREDNISolone NA SUCC 40 MG/1 ML VIAL IVPB SCH ×2 (02:10→10:11)
--- NOTE | 2016-12-08 10:01 | PN ---
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 Last Vital Signs Temp Pulse Resp BP Pulse Ox 97.9 F 20 L 18 135/77 95 12/08/16 06:00 12/08/16 06:00 12/08/16 06:00 12/08/16 06:00 12/07/16 21:00 lungs clear cvs s1s2 rr+daron abd soft, distended, not tender ext no edema neuro poor memory, alert CBC, BMP 12/07/16 06:55 12/07/16 06:55 Current Medications Generic Name Dose Route Start Last Admin Trade Name Freq PRN Reason Stop Dose Admin Atorvastatin Calcium 10 mg 12/05/16 22:00 12/07/16 21:32 Lipitor - PO 10 mg HS PIERCE Administration Furosemide 40 mg 12/06/16 10:00 12/07/16 10:50 Lasix - PO 40 mg DAILY PIERCE Administration Heparin Sodium (Porcine) 5,000 unit 12/06/16 02:00 12/08/16 02:07 Heparin - SQ 5,000 unit Q8H-IV PIERCE Administration Methylprednisolone Sodium Succinate 20 mg 12/07/16 15:17 12/08/16 02:10 Solu-Medrol - IVPB 20 mg Q8H-IV PIERCE Administration Mirtazapine 7.5 mg 12/05/16 22:00 12/07/16 21:32 Remeron - PO 7.5 mg HS PIERCE Administration Nifedipine 60 mg 12/06/16 10:00 12/07/16 10:50 Procardia Xl - PO 60 mg DAILY PIERCE Administration IMPRESSION Polyarthritis esrd HTN dementia possible gout PLAN agree with steroids rheum/heme eval will redialyze tomorrow continue current antihypertensives MV
[2016-12-08] MEDS ORDERED: HEPARIN NA (PORCINE) 5,000 UNITS/ML 1ML VIAL IVPUSH ONE (10:03)
[2016-12-08] MEDS: FUROSEMIDE 40 MG TABLET (FP) PO SCH ×2 (10:08→12:08)
[2016-12-08] MEDS: NIFEdipine E.R 60 MG TABLET (UD) PO SCH ×2 (10:08→12:09)
[2016-12-08] MEDS ORDERED: HEPARIN NA (PORCINE) 5,000 UNITS/ML 1ML VIAL IVPUSH SCH (10:15)
--- NOTE | 2016-12-08 14:01 | PN ---
Progress Note (short form) - Note Progress Note: currently asymptomatic. pain is improved however has not attempted to get out of bed today. denies Cp, SOB,fever, chills, N/V/C/D as per RN, no report of agitation or aggression. Current Medications Generic Name Dose Route Start Last Admin Trade Name No PRN Reason Stop Dose Admin Atorvastatin Calcium 10 mg 12/05/16 22:00 12/07/16 21:32 Lipitor - PO 10 mg HS PIERCE Administration Furosemide 40 mg 12/06/16 10:00 12/08/16 12:08 Lasix - PO 40 mg DAILY PIERCE Administration Heparin Sodium (Porcine) 5,000 unit 12/06/16 02:00 12/08/16 10:11 Heparin - SQ 5,000 unit Q8H-IV PIERCE Administration Heparin Sodium (Porcine) 1,000 unit 12/08/16 10:03 Heparin - IVPUSH 12/08/16 10:04 ONCE ONE Heparin Sodium (Porcine) 500 unit 12/08/16 10:15 Heparin - IVPUSH 12/08/16 12:16 Q1H PIERCE Methylprednisolone Sodium Succinate 20 mg 12/07/16 15:17 12/08/16 10:11 Solu-Medrol - IVPB 20 mg Q8H-IV PIERCE Administration Mirtazapine 7.5 mg 12/05/16 22:00 12/07/16 21:32 Remeron - PO 7.5 mg HS PIERCE Administration Nifedipine 60 mg 12/06/16 10:00 12/08/16 12:09 Procardia Xl - PO 60 mg DAILY PIERCE Administration Last Vital Signs Temp Pulse Resp BP Pulse Ox 97.7 F 69 20 120/67 95 12/08/16 11:40 12/08/16 12:00 12/08/16 12:00 12/08/16 12:00 12/07/16 21:00 General NAD A&O x3 CV S1 S2 + Extremities mild tenderness R hand 2nd MCP joint with some amari prominence, no joint swelling. multiple nodules L hand DIP joints B/L knees ROM limited due to pain, no effusions A/P 89-year-old woman with a history of HTN, hyperlipidemia, dementia, gout, ESRD on HD, anemia who presented to the ER with pain in her right hand, both knees and both ankles. 1. 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 improved on IV steroids. will start on po tomorrow. awaiting ortho consult. will likely require TIAN. PT eval. 2. Agitation- likely steroid induced. improved since reduced steroid dose. no more periods of agitation. off restraints. will cont to monitor 3. HTN-controlled. Continue Nifedipine, Lasix 4. Hyperlipidemia- Continue Lipitor 5. ESRD- Continue HD per normal schedule 6. Dementia with depression- Continue Remeron 7. PT assessment on friday. will likely require TIAN when medically optimized. Visit type - Emergency Visit Emergency Visit: Yes ED Registration Date: 12/05/16 Care time: The patient presented to the Emergency Department on the above date and was hospitalized for further evaluation of their emergent condition. - New Patient This patient is new to me today: No - Critical Care Critical Care patient: No - Discharge Referral Referred to [facility] Med P.C.: No
--- NOTE | 2016-12-08 15:18 | CONSULT ---
Consult - text type - Consultation Consultation Note: Asked to eval this 89F with PMH of anemia, HTN, HLD, gout, dementia, ESRD (M/W/F ) for b/l knee pain and ankle pain, possible left ankle fracture. Was admitted for possible sepsis work up. Patient denies trauma. States feeling better overall today. PMH: as above Meds: reviwed in chart All: NKDA FH: n/c SH: no etoh/cig ROS: no fevers/chills/weight loss PE: awake and cooperative, sitting comfortably in wheelchair PROM both hips pain free. Examination of knees with mild diffuse tenderness worse on left, small right joint effusion, no warmth or redness. No fluctuance, PROM without significant discomfort B/L ankles PROM without pain, no ecchymosis distals pulses 2+ No edema Labs: WBC 9.2 Xrays: B/L knees with significant OA B/L ankles: L ankle cortical irregularity of posterior malleolus, mortise intact. Imp: B/L knee OA, ankle exam not consistent with acute fx (no recent trauma either) -PT for OOB/WBAT b/l LE -no signs of infection or septic joint -no acute orthopaedic intervention indicated -reconsult PRN
[2016-12-08] MEDS: MIRTAZAPINE 15 MG TABLET (FP) PO SCH (22:27)
[2016-12-08] MEDS: ATORVASTATIN CA 10 MG TABLET (FP) PO SCH (22:27)
[2016-12-09] MEDS: HEPARIN NA (PORCINE) 5,000 UNITS/ML 1ML VIAL SQ SCH ×3 (02:29→17:57)
[2016-12-09] MEDS: HEPARIN NA (PORCINE) 5,000 UNITS/ML 1ML VIAL IVPUSH SCH ×3 (08:45→10:45)
--- NOTE | 2016-12-09 09:16 | PN ---
Physical Exam: SUBJECTIVE: Patient seen and examined No acute events overnight. Patient has no complaints. Ortho evaluated yesterday- - recommends PT, No acute intervention. OBJECTIVE: Vital Signs Period Temp Pulse Resp BP Sys/Wing Pulse Ox Last 24 Hr 97.0 F-98.3 F 60-79 18-24 104-148/55-83 96-97 GENERAL: Awake, alert, and fully oriented, in no acute distress. HEAD: Normal with no signs of trauma. EYES: Extraocular movements intact, sclera anicteric, conjunctiva clear NECK: Normal range of motion, supple without lymphadenopathy, JVD, or masses. LUNGS: Breath sounds equal, clear to auscultation bilaterally. No wheezes, and no crackles. No accessory muscle use. HEART: Regular rate and rhythm, normal S1 and S2 +3/6 Systolic ejection murmur, No rub or gallop. ABDOMEN: Soft, nontender, not distended, normoactive bowel sounds, no guarding, no rebound, no masses. No hepatomegaly or splenomegaly. MUSCULOSKELETAL: Right hand- warmth, mild tenderness over bony prominences (MCP) . B/L knees- tenderness to palpation, limited ROM B/L ankles- limited ROM, no tenderness to palpation. UPPER EXTREMITIES: 2+ radial pulses, warm, well-perfused. No cyanosis. No clubbing. No peripheral edema. LOWER EXTREMITIES: 1+ dp pulses, warm, well-perfused. No calf tenderness. No peripheral edema. NEUROLOGICAL: Cranial nerves II-XII intact. Normal speech. No gait observed PSYCHIATRIC: Cooperative. Good eye contact. Appropriate mood and affect. SKIN: Warm, dry, normal turgor Active Medications Generic Name Dose Route Start Last Admin Trade Name Freq PRN Reason Stop Dose Admin Atorvastatin Calcium 10 mg 12/05/16 22:00 12/08/16 22:27 Lipitor - PO 10 mg HS PIERCE Administration Furosemide 40 mg 12/06/16 10:00 12/08/16 12:08 Lasix - PO 40 mg DAILY PIERCE Administration Heparin Sodium (Porcine) 5,000 unit 12/06/16 02:00 12/09/16 02:29 Heparin - SQ 5,000 unit Q8H-IV PIERCE Administration Mirtazapine 7.5 mg 12/05/16 22:00 12/08/16 22:27 Remeron - PO 7.5 mg HS PIERCE Administration Multivit/Ca Carb/B Cmplx/FA/Prenat 1 tablet 12/09/16 10:00 Nephro-Cynthia - PO DAILY PIERCE Nifedipine 60 mg 12/06/16 10:00 12/08/16 12:09 Procardia Xl - PO 60 mg DAILY PIERCE Administration Prednisone 40 mg 12/09/16 10:00 Deltasone - PO DAILY PIERCE ASSESSMENT/PLAN: 89 year old F with a pmh of anemia, HTN, HLD, gout, dementia, ESRD (M/W/F) on dialysis presenting with 3 day history of joint pain admitted for possible gout vs pseudogout #Polyarticular joint tenderness- possible gout vs pseudogout vs. OA vs. RA -Currently on PO prednisone 40 mg PO Daily, Will taper the steroids over next 7 days -Ortho recommends PT, no acute intervention -F/u PT, will likely require sub acute rehab however family wants patient to come home, so will need to reassess. -Will f/u with Rheumatology as outpatient -X-rays show nondisplaced posterior tibial fracture and mild to moderate osteoarthritic changes with soft tissue swelling and joint effusions. -Will hold off antibiotics right now. Patient received vanc/zosyn in the ED. #Agitation- likely steroid induced -Resolved -No further episodes #ESRD on dialysis -M/W/F -HD today -Daughter's information. Name:LUIGI [phone] #HTN -Stable -Continue lasix 40 mg PO daily -Continue nifidipine ER 60 mg PO daily #HLD -Continue lipitor 10 mg PO hs #Dementia/Depression -Continue mirtazapine 7.5 mg PO daily #FEN/GI -No fluids -Electrolytes- wnl except Bun/Cr -Sodium controlled diet #PPX DVT-Heparin 5000 units sq Q8 GI-none #Deconditioning -PT consult placed Visit type - Emergency Visit Emergency Visit: No - New Patient This patient is new to me today: No - Critical Care Critical Care patient: No
[2016-12-09] MEDS ORDERED: HEPARIN NA (PORCINE) 5,000 UNITS/ML 1ML VIAL IVPUSH ONE (09:45)
--- NOTE | 2016-12-09 12:32 | PN ---
Progress Note, Physician History of Present Illness: Pt seen and examined at bedside. She denies shortness of breath. She is awake and appears comfortable. - Current Medication List Current Medications: Active Medications Atorvastatin Calcium (Lipitor -) 10 mg PO HS [facility] Last Admin: 12/08/16 22:27 Dose: 10 mg Furosemide (Lasix -) 40 mg PO DAILY [facility] Last Admin: 12/08/16 12:08 Dose: 40 mg Heparin Sodium (Porcine) (Heparin -) 5,000 unit SQ Q8H-IV [facility] Last Admin: 12/09/16 02:29 Dose: 5,000 unit Mirtazapine (Remeron -) 7.5 mg PO HS [facility] Last Admin: 12/08/16 22:27 Dose: 7.5 mg Multivit/Ca Carb/B Cmplx/FA/Prenat (Nephro-Cynthia -) 1 tablet PO DAILY [facility] Nifedipine (Procardia Xl -) 60 mg PO DAILY [facility] Last Admin: 12/08/16 12:09 Dose: 60 mg Prednisone (Deltasone -) 40 mg PO DAILY [facility] - Objective Vital Signs: Vital Signs Temperature 98.3 F 12/09/16 07:40 Pulse Rate 67 12/09/16 11:05 Respiratory Rate 18 12/09/16 11:05 Blood Pressure 132/78 12/09/16 11:05 O2 Sat by Pulse Oximetry (%) 96 12/08/16 21:00 Constitutional: Yes: Anxious Eyes: Yes: Conjunctiva Clear HENT: Yes: Atraumatic Neck: Yes: Supple Cardiovascular: Yes: S1, S2 Respiratory: Yes: On Nasal O2 Gastrointestinal: Yes: Soft Musculoskeletal: Yes: Joint Stiffness Edema: No Labs: CBC, BMP 12/07/16 06:55 12/07/16 06:55 Problem List - Problems (1) ESRD needing dialysis Code(s): N18.6 - END STAGE RENAL DISEASE (2) Hypertension Code(s): I10 - ESSENTIAL (PRIMARY) HYPERTENSION Qualifiers: Hypertension type: secondary to other renal disorders Qualified Code(s) : I15.1 - Hypertension secondary to other renal disorders; N28.89 - Other specified disorders of kidney and ureter Assessment/Plan Current Medications Generic Name Dose Route Start Last Admin Trade Name Freq PRN Reason Stop Dose Admin Atorvastatin Calcium 10 mg 12/05/16 22:00 12/08/16 22:27 Lipitor - PO 10 mg HS PIERCE Administration Furosemide 40 mg 12/06/16 10:00 12/08/16 12:08 Lasix - PO 40 mg DAILY PIERCE Administration Heparin Sodium (Porcine) 5,000 unit 12/06/16 02:00 12/09/16 02:29 Heparin - SQ 5,000 unit Q8H-IV PIERCE Administration Mirtazapine 7.5 mg 12/05/16 22:00 12/08/16 22:27 Remeron - PO 7.5 mg HS PIERCE Administration Multivit/Ca Carb/B Cmplx/FA/Prenat 1 tablet 12/09/16 10:00 Nephro-Cynthia - PO DAILY PIERCE Nifedipine 60 mg 12/06/16 10:00 12/08/16 12:09 Procardia Xl - PO 60 mg DAILY PIERCE Administration Prednisone 40 mg 12/09/16 10:00 Deltasone - PO DAILY PIERCE Laboratory Tests 12/06/16 12/07/16 06:00 06:55 Rheumatoid Factor < 10.0 MARY Screen Pending Impression 1. ESRD 2. HTN 3. hyperlipidemia 4. nephrolithiasis 5. anemia 6. agitation Plan - pt tolerated HD today - blood pressure is stable - workup is in progress - follow up mary - will follow Dr Ricmhond
[2016-12-09] MEDS: predniSONE 20 MG TABLET (UD) PO SCH (13:18)
[2016-12-09] MEDS: FUROSEMIDE 40 MG TABLET (FP) PO SCH (13:19)
[2016-12-09] MEDS: VITAMIN B COMP W-C 1 EA TABLET PO SCH (13:19)
[2016-12-09] MEDS: NIFEdipine E.R 60 MG TABLET (UD) PO SCH (13:19)
--- NOTE | 2016-12-09 13:49 | PN ---
Progress Note, Physician Chief Complaint: ID Prednisone continues - Current Medication List Current Medications: Active Medications Atorvastatin Calcium (Lipitor -) 10 mg PO HS [facility] Last Admin: 12/08/16 22:27 Dose: 10 mg Furosemide (Lasix -) 40 mg PO DAILY [facility] Last Admin: 12/09/16 13:19 Dose: 40 mg Heparin Sodium (Porcine) (Heparin -) 5,000 unit SQ Q8H-IV [facility] Last Admin: 12/09/16 13:18 Dose: 5,000 unit Mirtazapine (Remeron -) 7.5 mg PO HS [facility] Last Admin: 12/08/16 22:27 Dose: 7.5 mg Multivit/Ca Carb/B Cmplx/FA/Prenat (Nephro-Cynthia -) 1 tablet PO DAILY [facility] Last Admin: 12/09/16 13:19 Dose: 1 tablet Nifedipine (Procardia Xl -) 60 mg PO DAILY [facility] Last Admin: 12/09/16 13:19 Dose: 60 mg Prednisone (Deltasone -) 40 mg PO DAILY [facility] Last Admin: 12/09/16 13:18 Dose: 40 mg - Objective Vital Signs: Vital Signs Temperature 98.3 F 12/09/16 07:40 Pulse Rate 67 12/09/16 11:05 Respiratory Rate 18 12/09/16 11:05 Blood Pressure 132/78 12/09/16 11:05 O2 Sat by Pulse Oximetry (%) 96 12/09/16 12:30 Constitutional: Yes: Well Nourished, No Distress HENT: Yes: WNL, Atraumatic Neck: Yes: WNL, Supple Cardiovascular: Yes: S1, S2 Respiratory: Yes: WNL, Regular, CTA Bilaterally Gastrointestinal: Yes: Soft Labs: CBC, BMP 12/07/16 06:55 12/07/16 06:55 Problem List - Problems (1) ESRD needing dialysis Code(s): N18.6 - END STAGE RENAL DISEASE (2) Acute gout Code(s): M10.9 - GOUT, UNSPECIFIED (3) Endocarditis Code(s): I38 - ENDOCARDITIS, VALVE UNSPECIFIED Assessment/Plan Laboratory Tests 12/07/16 06:55 WBC 9.2 Hgb 11.3 Plt Count 198 Assessment ESRD Suspected gouty arthritis Plan Will sign off at this time Bandar RAO
--- NOTE | 2016-12-09 14:11 | PN ---
Teaching Attending Note Name of Resident: Malcolm Farias ATTENDING PHYSICIAN STATEMENT I saw and evaluated the patient. I reviewed the resident's note and discussed the case with the resident. I agree with the resident's findings and plan as documented. SUBJECTIVE:states pain is improved. has not gotten out of bed to ambulate. denies CP, SOB, fever, chills, N/V/C/D OBJECTIVE: Last Vital Signs Temp Pulse Resp BP Pulse Ox 98.3 F 67 18 132/78 96 12/09/16 07:40 12/09/16 11:05 12/09/16 11:05 12/09/16 11:05 12/09/16 12:30 General NAD A&O x3 CV S1 S2 + Extremities mild tenderness R hand 2nd MCP joint with some amari prominence, no joint swelling. multiple nodules L hand DIP joints B/L knees ROM limited due to pain, no effusions A/P 89-year-old woman with a history of HTN, hyperlipidemia, dementia, gout, ESRD on HD, anemia who presented to the ER with pain in her right hand, both knees and both ankles. 1. 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 clinically improved. cont steroid taper over the next 7 days. evaluated by ortho, no intervention at this time. will need to f/u with Rheum as outpatient as not currently available to evaluate at this time. PT evaluation and would likely benefit from TIAN. will need to confirm with family as now being told family wants to bring home. will need PT 2. Agitation- likely steroid induced. no repeated episodes of agitation. 3. HTN-controlled. Continue Nifedipine, Lasix 4. Hyperlipidemia- Continue Lipitor 5. ESRD- Continue HD per normal schedule 6. Dementia with depression- Continue Remeron 7. d/c planning home with home PT vs TIAN
[2016-12-09] MEDS: MIRTAZAPINE 15 MG TABLET (FP) PO SCH (21:53)
[2016-12-09] MEDS: ATORVASTATIN CA 10 MG TABLET (FP) PO SCH (21:53)
[2016-12-10 00:06] LABS: HEP B SURFACE AB Reactive (.)
[2016-12-10] MEDS: HEPARIN NA (PORCINE) 5,000 UNITS/ML 1ML VIAL SQ SCH ×3 (01:57→17:28)
[2016-12-10 07:32] LABS: BASOPHIL 0.1 % (0-2.0); MCH 32.9 pg (25.7-33.7); MCHC 33.3 g/dl (32.0-36.0); MEAN CELL VOLUME 98.7 fl (80-96); PLATELET COUNT 179 K/MM3 (134-434); RDW 15.5 % (11.6-15.6); WHITE BLOOD COUNT 6.5 K/mm3 (4.0-10.0)
[2016-12-10 08:16] LABS: ANION GAP 14 (8-16); CALCIUM 7.5 mg/dL (8.5-10.1); CO2 27 mmol/L (21-32); CREATININE 4.9 mg/dL (0.55-1.02); GLUCOSE,RANDOM 108 mg/dL (74-106); MAGNESIUM 2.3 mg/dL (1.8-2.4); PHOSPHOROUS 6.9 mg/dL (2.5-4.9)
[2016-12-10] MEDS: predniSONE 20 MG TABLET (UD) PO SCH (09:39)
[2016-12-10] MEDS: NIFEdipine E.R 60 MG TABLET (UD) PO SCH (09:39)
[2016-12-10] MEDS: VITAMIN B COMP W-C 1 EA TABLET PO SCH (09:39)
[2016-12-10] MEDS: FUROSEMIDE 40 MG TABLET (FP) PO SCH (09:39)
--- NOTE | 2016-12-10 12:24 | PN ---
Teaching Attending Note Name of Resident: Kirsty Mcarthur ATTENDING PHYSICIAN STATEMENT I saw and evaluated the patient. I reviewed the resident's note and discussed the case with the resident. I agree with the resident's findings and plan as documented. SUBJECTIVE:currently asymptomatic. denies CP, SOB, fever, chills, N/V/C/D OBJECTIVE: Last Vital Signs Temp Pulse Resp BP Pulse Ox 97.6 F 72 20 138/79 94 L 12/10/16 05:00 12/10/16 05:00 12/10/16 05:00 12/10/16 05:00 12/09/16 21:00 General NAD A&O x3 CV S1 S2 + Extremities mild tenderness R hand 2nd MCP joint with some amari prominence, no joint swelling. multiple nodules L hand DIP joints B/L knees ROM limited due to pain, no effusions A/P 89-year-old woman with a history of HTN, hyperlipidemia, dementia, gout, ESRD on HD, anemia who presented to the ER with pain in her right hand, both knees and both ankles. 1. 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 clinically improved. cont steroid taper over the next 7 days. evaluated by ortho, no intervention at this time. will need to f/u with Rheum as outpatient as not currently available to evaluate at this time. family refusing TIAN at this time and wants pt to go home with home PT 2. Agitation- likely steroid induced. no repeated episodes of agitation. 3. HTN-controlled. Continue Nifedipine, Lasix 4. Hyperlipidemia- Continue Lipitor 5. ESRD- Continue HD per normal schedule 6. Dementia with depression- Continue Remeron 7. d/c home with PT
--- NOTE | 2016-12-10 14:07 | PN ---
Progress Note, Physician History of Present Illness: Pt seen and examined at bedside. She is awake and alert. She says she feels better today. She denies shortness of breath. - Current Medication List Current Medications: Active Medications Atorvastatin Calcium (Lipitor -) 10 mg PO HS [facility] Last Admin: 12/09/16 21:53 Dose: 10 mg Furosemide (Lasix -) 40 mg PO DAILY [facility] Last Admin: 12/10/16 09:39 Dose: 40 mg Heparin Sodium (Porcine) (Heparin -) 5,000 unit SQ Q8H-IV [facility] Last Admin: 12/10/16 09:39 Dose: 5,000 unit Mirtazapine (Remeron -) 7.5 mg PO HS [facility] Last Admin: 12/09/16 21:53 Dose: 7.5 mg Multivit/Ca Carb/B Cmplx/FA/Prenat (Nephro-Cynthia -) 1 tablet PO DAILY [facility] Last Admin: 12/10/16 09:39 Dose: 1 tablet Nifedipine (Procardia Xl -) 60 mg PO DAILY [facility] Last Admin: 12/10/16 09:39 Dose: 60 mg Prednisone (Deltasone -) 40 mg PO DAILY [facility] Last Admin: 12/10/16 09:39 Dose: 40 mg - Objective Vital Signs: Vital Signs Temperature 98.0 F 12/10/16 10:00 Pulse Rate 79 12/10/16 10:00 Respiratory Rate 20 12/10/16 10:00 Blood Pressure 139/79 12/10/16 10:00 O2 Sat by Pulse Oximetry (%) 96 12/10/16 09:00 Constitutional: Yes: Calm Eyes: Yes: Conjunctiva Clear HENT: Yes: Atraumatic Neck: Yes: Supple Cardiovascular: Yes: S1, S2 Respiratory: Yes: CTA Bilaterally Gastrointestinal: Yes: Soft Genitourinary: Yes: WNL Extremities: Yes: WNL Edema: No Neurological: Yes: Oriented Psychiatric: Yes: Oriented Labs: CBC, BMP 12/10/16 06:20 12/10/16 06:20 Problem List - Problems (1) ESRD needing dialysis Code(s): N18.6 - END STAGE RENAL DISEASE (2) Hypertension Code(s): I10 - ESSENTIAL (PRIMARY) HYPERTENSION Qualifiers: Hypertension type: secondary to other renal disorders Qualified Code(s) : I15.1 - Hypertension secondary to other renal disorders; N28.89 - Other specified disorders of kidney and ureter Assessment/Plan Current Medications Generic Name Dose Route Start Last Admin Trade Name No PRN Reason Stop Dose Admin Atorvastatin Calcium 10 mg 12/05/16 22:00 12/09/16 21:53 Lipitor - PO 10 mg HS [facility] Administration Furosemide 40 mg 12/06/16 10:00 12/10/16 09:39 Lasix - PO 40 mg DAILY [facility] Administration Heparin Sodium (Porcine) 5,000 unit 12/06/16 02:00 12/10/16 09:39 Heparin - SQ 5,000 unit Q8H-IV [facility] Administration Mirtazapine 7.5 mg 12/05/16 22:00 12/09/16 21:53 Remeron - PO 7.5 mg HS [facility] Administration Multivit/Ca Carb/B Cmplx/FA/Prenat 1 tablet 12/09/16 10:00 12/10/16 09:39 Nephro-Cynthia - PO 1 tablet DAILY [facility] Administration Nifedipine 60 mg 12/06/16 10:00 12/10/16 09:39 Procardia Xl - PO 60 mg DAILY [facility] Administration Prednisone 40 mg 12/09/16 10:00 12/10/16 09:39 Deltasone - PO 40 mg DAILY [facility] Administration Impression 1. ESRD 2. HTN 3. hyperlipidemia 4. nephrolithiasis 5. anemia 6. agitation Plan - pt has HD tomorrow - she tolerated HD yesterday - mary is pending, will need to be followed - steroid taper as tolerated - will follow Dr Richmond
[2016-12-10] MEDS ORDERED: predniSONE 20 MG TABLET (UD) PO SCH (15:35)
--- NOTE | 2016-12-10 16:17 | PN ---
Physical Exam: SUBJECTIVE: Patient seen and examined. Calm and cooperative. Says she has some pain in her legs, especially at her left ankle. Able to move her right more than yesterday. OBJECTIVE: Vital Signs Period Temp Pulse Resp BP Sys/Wing Pulse Ox Last 24 Hr 97.5 F-98.7 F 72-87 17-20 112-139/60-79 94-96 GENERAL: The patient is awake, alert, in no acute distress. Oriented to person, aware this is a hospital. EYES: extraocular movements intact, sclera anicteric, conjunctiva clear ENT: oropharynx clear without exudates, moist mucous membranes. no LAD LUNGS: Breath sounds equal, clear to auscultation bilaterally, no wheezes, no crackles, no accessory muscle use. HEART: Regular rate and rhythm, S1, S2 with systolic murmur ABDOMEN: Soft, nontender, nondistended, normoactive bowel sounds, no guarding. EXTREMITIES: 1+ DP b/l, 2+ radial pulses b/l warm, well-perfused, no edema. improved range of motion in right wrist extension/flexion, and handgrip. decreased tenderness at all MCP/DIP and PIP joints. no crepitus on left or right knees. limited range of motion on flexion and extension at knees, no palpable effusion, no erythema. no CVA or spinal tenderness. left upper arm with palpable thrill. NEUROLOGICAL: Normal speech, facial symmetry. Laboratory Results - last 24 hr 12/06/16 12/10/16 12/10/16 17:30 06:20 06:20 WBC 6.5 RBC 3.63 Hgb 11.9 Hct 35.8 MCV 98.7 H MCH 32.9 MCHC 33.3 RDW 15.5 Plt Count 179 MPV 7.0 L Neutrophils % 74.0 Lymphocytes % 20.3 D Monocytes % 5.6 Eosinophils % 0.0 Basophils % 0.1 Sodium 139 Potassium 4.3 Chloride 98 Carbon Dioxide 27 Anion Gap 14 BUN 70 H D Creatinine 4.9 H Random Glucose 108 H D Calcium 7.5 L Phosphorus 6.9 H D Magnesium 2.3 Hep A IgM Ab Confirm Negative Hepatitis A Ab Total Positive H Hep Bs Antigen Negative Hep Bs Antibody Reactive Hep B Core Total Ab Negative Hepatitis C Antibody <0.1 Active Medications Generic Name Dose Route Start Last Admin Trade Name Freq PRN Reason Stop Dose Admin Atorvastatin Calcium 10 mg 12/05/16 22:00 12/09/16 21:53 Lipitor - PO 10 mg HS [facility] Administration Furosemide 40 mg 12/06/16 10:00 12/10/16 09:39 Lasix - PO 40 mg DAILY [facility] Administration Heparin Sodium (Porcine) 5,000 unit 12/06/16 02:00 12/10/16 09:39 Heparin - SQ 5,000 unit Q8H-IV [facility] Administration Mirtazapine 7.5 mg 12/05/16 22:00 12/09/16 21:53 Remeron - PO 7.5 mg HS [facility] Administration Multivit/Ca Carb/B Cmplx/FA/Prenat 1 tablet 12/09/16 10:00 12/10/16 09:39 Nephro-Cynthia - PO 1 tablet DAILY [facility] Administration Nifedipine 60 mg 12/06/16 10:00 12/10/16 09:39 Procardia Xl - PO 60 mg DAILY [facility] Administration Prednisone 30 mg 12/10/16 15:35 Deltasone - PO DAILY [facility] ASSESSMENT/PLAN: 89 year old F with a pmh of anemia, HTN, HLD, gout, dementia, ESRD (M/W/F) on dialysis presenting with polyarticular joint pain admitted for possible gout vs pseudogout. -Daughter's information. Name:LUIGI [phone], she is the healthcare proxy and will need to be contact for consent and patient's dc plan. #Polyarticular joint tenderness- likely gout or pseudogout, improved with steroids -RF negative, lower suspicion for RF. unlikely to be septic arthritis, monitor off abx. - Currently on PO prednisone 30 mg PO Daily, Will taper the steroids over next 6 days - PT evaluation recommends patient would benefit from TINA, family requests [facility], [facility] sent out as per [facility], will follow-up tomorrow regarding placement -Will f/u with Rheumatology as outpatient for further evaluation #ESRD on dialysis -M/W/F - consult: Dr. Johnson #HTN - controlled - lasix 40 mg PO daily - nifidipine ER 60 mg PO daily #HLD - lipitor 10 mg PO hs #Dementia/Depression - mirtazapine 7.5 mg PO daily Diet - sodium controlled renal diet - Nephrovite DVT-Heparin 5000 units sq Q8 Visit type - Emergency Visit Emergency Visit: No - New Patient This patient is new to me today: No - Critical Care Critical Care patient: No
[2016-12-10] MEDS: ATORVASTATIN CA 10 MG TABLET (FP) PO SCH (21:25)
[2016-12-10] MEDS: MIRTAZAPINE 15 MG TABLET (FP) PO SCH (21:25)
[2016-12-11] MEDS: HEPARIN NA (PORCINE) 5,000 UNITS/ML 1ML VIAL SQ SCH ×3 (03:27→17:54)
[2016-12-11] MEDS: NIFEdipine E.R 60 MG TABLET (UD) PO SCH (10:24)
[2016-12-11] MEDS: FUROSEMIDE 40 MG TABLET (FP) PO SCH (10:24)
[2016-12-11] MEDS: VITAMIN B COMP W-C 1 EA TABLET PO SCH (10:24)
--- NOTE | 2016-12-11 11:46 | PN ---
Teaching Attending Note Name of Resident: Malcolm Farias ATTENDING PHYSICIAN STATEMENT I saw and evaluated the patient. I reviewed the resident's note and discussed the case with the resident. I agree with the resident's findings and plan as documented. SUBJECTIVE:asymptomatic. states her pain is improved. denies CP, SOB,fever, chills, N/V/C/D OBJECTIVE: Last Vital Signs Temp Pulse Resp BP Pulse Ox 98.0 F 69 20 124/86 96 12/11/16 10:00 12/11/16 10:00 12/11/16 10:00 12/11/16 10:12/10/16 21:00 General NAD A&O x3 CV S1 S2 + Extremities multiple nodules L hand DIP joints B/L knees ROM limited due to pain, no effusions A/P 89-year-old woman with a history of HTN, hyperlipidemia, dementia, gout, ESRD on HD, anemia who presented to the ER with pain in her right hand, both knees and both ankles. 1. 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 clinically improved. cont steroid taper over the next 7 days. evaluated by ortho, no intervention at this time. will need to f/u with Rheum as outpatient as not currently available to evaluate at this time. family refusing [facility] at this time and wants pt to go home with home PT 2. Agitation- likely steroid induced. no repeated episodes of agitation. 3. HTN-controlled. Continue Nifedipine, Lasix 4. Hyperlipidemia- Continue Lipitor 5. ESRD- Continue HD per normal schedule 6. Dementia with depression- Continue Remeron 7. plan was for pt to go home with family at their request but then they agreed to TIAN placement. awaiting placement
--- NOTE | 2016-12-11 12:51 | PN ---
Progress Note, Physician History of Present Illness: Pt seen and examined at bedside. She is awake and alert. She says she feels better today. - Current Medication List Current Medications: Active Medications Atorvastatin Calcium (Lipitor -) 10 mg PO HS [facility] Last Admin: 12/10/16 21:25 Dose: 10 mg Furosemide (Lasix -) 40 mg PO DAILY [facility] Last Admin: 12/11/16 10:24 Dose: 40 mg Heparin Sodium (Porcine) (Heparin -) 5,000 unit SQ Q8H-IV [facility] Last Admin: 12/11/16 10:24 Dose: 5,000 unit Mirtazapine (Remeron -) 7.5 mg PO HS [facility] Last Admin: 12/10/16 21:25 Dose: 7.5 mg Multivit/Ca Carb/B Cmplx/FA/Prenat (Nephro-Cynthia -) 1 tablet PO DAILY [facility] Last Admin: 12/11/16 10:24 Dose: 1 tablet Nifedipine (Procardia Xl -) 60 mg PO DAILY [facility] Last Admin: 12/11/16 10:24 Dose: 60 mg Prednisone (Deltasone -) 30 mg PO DAILY [facility] Last Admin: 12/11/16 10:24 Dose: 30 mg - Objective Vital Signs: Vital Signs Temperature 98.8 F 12/11/16 12:15 Pulse Rate 73 12/11/16 12:20 Respiratory Rate 18 12/11/16 12:20 Blood Pressure 149/92 12/11/16 12:20 O2 Sat by Pulse Oximetry (%) 96 12/10/16 21:00 Constitutional: Yes: Calm Eyes: Yes: Conjunctiva Clear HENT: Yes: Atraumatic Neck: Yes: Supple Cardiovascular: Yes: S1, S2 Respiratory: Yes: CTA Bilaterally Genitourinary: Yes: WNL Musculoskeletal: Yes: WNL Extremities: Yes: WNL Edema: No Neurological: Yes: Oriented Labs: CBC, BMP 12/10/16 06:20 12/10/16 06:20 Problem List - Problems (1) ESRD needing dialysis Code(s): N18.6 - END STAGE RENAL DISEASE (2) Hypertension Code(s): I10 - ESSENTIAL (PRIMARY) HYPERTENSION Qualifiers: Hypertension type: secondary to other renal disorders Qualified Code(s) : I15.1 - Hypertension secondary to other renal disorders; N28.89 - Other specified disorders of kidney and ureter Assessment/Plan Current Medications Generic Name Dose Route Start Last Admin Trade Name No PRN Reason Stop Dose Admin Atorvastatin Calcium 10 mg 12/05/16 22:00 12/10/16 21:25 Lipitor - PO 10 mg HS [facility] Administration Furosemide 40 mg 12/06/16 10:00 12/11/16 10:24 Lasix - PO 40 mg DAILY [facility] Administration Heparin Sodium (Porcine) 5,000 unit 12/06/16 02:00 12/11/16 10:24 Heparin - SQ 5,000 unit Q8H-IV [facility] Administration Mirtazapine 7.5 mg 12/05/16 22:00 12/10/16 21:25 Remeron - PO 7.5 mg HS [facility] Administration Multivit/Ca Carb/B Cmplx/FA/Prenat 1 tablet 12/09/16 10:00 12/11/16 10:24 Nephro-Cynthia - PO 1 tablet DAILY [facility] Administration Nifedipine 60 mg 12/06/16 10:00 12/11/16 10:24 Procardia Xl - PO 60 mg DAILY [facility] Administration Prednisone 30 mg 12/10/16 15:35 12/11/16 10:24 Deltasone - PO 30 mg DAILY [facility] Administration Laboratory Tests 12/07/16 06:55 MARY Screen Pending Impression 1. ESRD 2. HTN 3. hyperlipidemia 4. nephrolithiasis 5. anemia 6. agitation Plan - HD today - pt has HD set up as outpt - taper steroids as toelrated - mary is still pending - discussed with daughter - will follow Dr Richmond
--- NOTE | 2016-12-11 18:50 | PN ---
Physical Exam: SUBJECTIVE: Patient seen and examined No acute events overnight. No complaints this morning OBJECTIVE: Vital Signs Period Temp Pulse Resp BP Sys/Wing Pulse Ox Last 24 Hr 98.0 F-98.8 F 65-80 18-20 104-174/59-92 96-96 GENERAL: The patient is awake, alert, in no acute distress. EYES: extraocular movements intact, sclera anicteric, conjunctiva clear ENT: oropharynx clear without exudates, moist mucous membranes. no LAD LUNGS: Breath sounds equal, clear to auscultation bilaterally, no wheezes, no crackles, no accessory muscle use. HEART: Regular rate and rhythm, S1, S2 with systolic murmur ABDOMEN: Soft, nontender, nondistended, normoactive bowel sounds, no guarding. EXTREMITIES: 1+ DP b/l, 2+ radial pulses b/l warm, well-perfused, no edema. improved range of motion in right wrist extension/flexion, and handgrip. decreased tenderness at all MCP/DIP and PIP joints. no crepitus on left or right knees. limited range of motion on flexion and extension at knees no CVA or spinal tenderness. left upper arm with palpable thrill. NEUROLOGICAL: Normal speech, facial symmetry. Active Medications Generic Name Dose Route Start Last Admin Trade Name Freq PRN Reason Stop Dose Admin Atorvastatin Calcium 10 mg 12/05/16 22:00 12/10/16 21:25 Lipitor - PO 10 mg HS [facility] Administration Furosemide 40 mg 12/06/16 10:00 12/11/16 10:24 Lasix - PO 40 mg DAILY [facility] Administration Heparin Sodium (Porcine) 5,000 unit 12/06/16 02:00 12/11/16 17:54 Heparin - SQ 5,000 unit Q8H-IV [facility] Administration Mirtazapine 7.5 mg 12/05/16 22:00 12/10/16 21:25 Remeron - PO 7.5 mg HS [facility] Administration Multivit/Ca Carb/B Cmplx/FA/Prenat 1 tablet 12/09/16 10:00 12/11/16 10:24 Nephro-Cynthia - PO 1 tablet DAILY [facility] Administration Nifedipine 60 mg 12/06/16 10:00 12/11/16 10:24 Procardia Xl - PO 60 mg DAILY [facility] Administration Prednisone 30 mg 12/10/16 15:35 12/11/16 10:24 Deltasone - PO 30 mg DAILY [facility] Administration ASSESSMENT/PLAN: 89 year old F with a pmh of anemia, HTN, HLD, gout, dementia, ESRD (M/W/F) on dialysis presenting with polyarticular joint pain admitted for possible gout vs pseudogout. -Daughter's information. Name:LUIGI [phone], she is the healthcare proxy and will need to be contact for consent and patient's dc plan. #Polyarticular joint tenderness- likely gout or pseudogout, improved with steroids -RF negative, lower suspicion for RF. unlikely to be septic arthritis, monitor off abx. - Currently on PO prednisone 30 mg PO Daily, Will taper the steroids over next 6 days -Will f/u with Rheumatology as outpatient for further evaluation -Patient was scheduled to be d/c today, however daughter did not pick her up. Will d/c in the AM #ESRD on dialysis -M/W/F - consult: Dr. Johnson #HTN - controlled - lasix 40 mg PO daily - nifidipine ER 60 mg PO daily #HLD - lipitor 10 mg PO hs #Dementia/Depression - mirtazapine 7.5 mg PO daily Diet - sodium controlled renal diet - Nephrovite DVT-Heparin 5000 units sq Q8 Visit type - Emergency Visit Emergency Visit: No - New Patient This patient is new to me today: No - Critical Care Critical Care patient: No
[2016-12-11] MEDS: MIRTAZAPINE 15 MG TABLET (FP) PO SCH (21:41)
[2016-12-11] MEDS: ATORVASTATIN CA 10 MG TABLET (FP) PO SCH (21:41)
[2016-12-11] MEDS ORDERED: ALBUTEROL SO4 0.083% IH SOL 2.5 MG/3 ML VIAL.NEB. NEB ONE (22:47)
--- NOTE | 2016-12-11 22:47 | HOSP ---
Subjective - Review of Symptoms Events since last encounter: Notified by RN that pt satting at 85% on NRB 100% O2. Subjective: Deneis any SOB, chest pain, tightness, or pressure. Physical Examination Vital Signs: Vital Signs Temperature 97.6 F 12/11/16 22:31 Pulse Rate 87 12/11/16 22:31 Respiratory Rate 18 12/11/16 22:31 Blood Pressure 130/72 12/11/16 22:31 O2 Sat by Pulse Oximetry (%) 96 12/11/16 09:00 Constitutional: Yes: No Distress Cardiovascular: Yes: Regular Rate and Rhythm Respiratory: Yes: CTA Bilaterally, Other (No wheezing, crackles or rhonchi. No tachypnea or accessory muscle use) Labs: CBC, BMP 12/10/16 06:20 12/10/16 06:20 Hospitalist Encounter Assessment: Patient in no acute distress, no c/o SOB. On physical exam, patient was not tachypneic, no accessory muscle use, and lungs CTAB. -CXR was ordered - Prelim report suggests possible developing L lower pleural effusion -Given 1 amp Albuterol neb Pt was re-evaluated, PE unchanged, VS stable. Patient's O2 saturation appears to be positional, and was satting at 97% on 3L O2 when supine. Pt discussed with attending Dr. Gaming and medical team. LUKASZ SUGGS MD PGY-1 Visit type - Emergency Visit Emergency Visit: No - New Patient This patient is new to me today: Yes Date on this admission: 12/12/16 - Critical Care Critical Care patient: No
[2016-12-12] MEDS: HEPARIN NA (PORCINE) 5,000 UNITS/ML 1ML VIAL SQ SCH ×2 (02:07→11:02)
[2016-12-12] MEDS ORDERED: predniSONE 20 MG TABLET (UD) PO SCH (08:37)
[2016-12-12 10:24] VITALS: BP 143/70
[2016-12-12 10:42] LABS: BASOPHIL 0.1 % (0-2.0); EOSINOPHIL 0.8 % (0-4.5); MCH 31.8 pg (25.7-33.7); MCHC 32.6 g/dl (32.0-36.0); MEAN CELL VOLUME 97.5 fl (80-96); MEAN PLT VOLUME 7.1 fl (7.5-11.1); NEUTROPHILS 64.7 % (42.8-82.8); PLATELET COUNT 185 K/MM3 (134-434); RDW 15.4 % (11.6-15.6); WHITE BLOOD COUNT 8.8 K/mm3 (4.0-10.0)
[2016-12-12] MEDS: FUROSEMIDE 40 MG TABLET (FP) PO SCH (11:01)
[2016-12-12] MEDS: VITAMIN B COMP W-C 1 EA TABLET PO SCH (11:01)
[2016-12-12] MEDS: NIFEdipine E.R 60 MG TABLET (UD) PO SCH (11:01)
--- NOTE | 2016-12-12 12:12 | PN ---
Teaching Attending Note Name of Resident: Malcolm Farias ATTENDING PHYSICIAN STATEMENT I saw and evaluated the patient. I reviewed the resident's note and discussed the case with the resident. I agree with the resident's findings and plan as documented. SUBJECTIVE:currently asymptomatic. denies SOB, cough, fever, chills, CP, N/V/C/D documentation of hypoxia last night, she states she never felt SOB but was told to put on O2 OBJECTIVE: Last Vital Signs Temp Pulse Resp BP Pulse Ox 98.1 F 74 18 143/70 99 12/12/16 10:12/12/16 10:12/12/16 10:12/12/16 10:12/12/16 06:36 General NAD CV S1 S2 RRR no murmur/rub/gallop Lungs CTA B/L no wheezing/rales/rhonchi Extremities-B/L knees ROM limited due to pain, no effusions A/P 89-year-old woman with a history of HTN, hyperlipidemia, dementia, gout, ESRD on HD, anemia who presented to the ER with pain in her right hand, both knees and both ankles. 1. 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 clinically improved. cont steroid taper. f/u with Rheum as outpatient as not currently available to evaluate at this time. 2. Acute hypoxia- currently saturating 97% on RA. no signs of SOB or infection. CXR no acute infiltrates. possible positional vs some atelectasis. no indication for abx or intervention at this time 3. Agitation- likely steroid induced. no repeated episodes of agitation. 4. HTN-controlled. Continue Nifedipine, Lasix 5. Hyperlipidemia- Continue Lipitor 6. ESRD- Continue HD per normal schedule 7. Dementia with depression- Continue Remeron 8. so family now requesting TIAN placement again. awaiting authorization.
--- NOTE | 2016-12-12 12:59 | DS ---
Physical Exam: LABS Laboratory Results - last 24 hr Selected Entries 12/05/16 12:48 Temperature 100 F H Pulse Rate 106 H O2 Sat by Pulse 91 L Oximetry (%) Laboratory Tests 12/05/16 12/05/16 12/05/16 14:55 14:55 14:55 WBC 10.9 H D ESR Sodium 133 L BUN 74 H D Creatinine 7.3 H D Random Glucose 140 H Lactic Acid 1.3 Uric Acid C-Reactive Protein 12/05/16 12/05/16 12/06/16 15:12 15:12 06:00 WBC 10.6 H ESR 117 H Sodium BUN Creatinine Random Glucose Lactic Acid Uric Acid 5.6 C-Reactive Protein 23.9 H D 12/06/16 12/07/16 12/07/16 06:00 06:55 06:55 WBC 9.2 ESR Sodium BUN 81 H 45 H D Creatinine 7.9 H* 4.8 H D Random Glucose 159 H D Lactic Acid Uric Acid C-Reactive Protein 12/10/16 12/10/16 12/12/16 06:20 06:20 10:10 WBC 6.5 8.8 D ESR Sodium 139 BUN 70 H D Creatinine 4.9 H Random Glucose 108 H D Lactic Acid Uric Acid C-Reactive Protein Last Vital Signs Temp Pulse Resp BP Pulse Ox 98.1 F 74 18 143/70 99 12/12/16 10:23 12/12/16 10:23 12/12/16 10:23 12/12/16 10:23 12/12/16 06:36 12/05/16- Chest, Hand, Knee, Ankle X Ray- Chest- No acute changes Hand- Mild soft tissue swelling Knee- Mild to moderate osteoarthritic changes worse in the right knee with soft tissue swelling Ankle- Cortical irregularity in the distal tibia suggestive of a nondisplaced posterior tibial fracture. EKG-Sinus tachy, mild left atrial enlargement, No st-t wave changes Echo-Mild mitral valve stenosis. No LV dysfunction. RV is normal size and function 12/12/16- Chest xray- No evidence of vascular congestion. HOSPITAL COURSE: Date of Admission:12/05/16 Date of Discharge: 12/12/16 Pre-hospital course- 89F PMH of anemia, HTN, HLD, gout, dementia, ESRD on dialysis M/W/F presented for 3 day history of right hand, bilateral knee, and bilateral ankle pain. Patient was seen in the ED on 12/02 for her right hand pain and given clindamycin for presumed cellulitis but patient never took it. Patient had then developed excruciating, 10/10 pain in the right hand, bilateral knees, and bilateral ankles. She endorsed chills, difficulty walking at home, and worsening pain in her joints. She stated her hand erythema and swelling had improved despite not picking up the antibiotics from the pharmacy. Patient lives at home by herself and states she is able to cook clean and shower herself. Her daughter lives next door to her. She denies all other symptoms. ED course- In the ED, patient had multiple x-rays (results above), labs drawn, and was started on empiric vancomycin and zosyn. She was admitted for possible gout vs pseudogout. Hospital Course- During the hospital course, Patient was afebrile. Patient had an elevated ESR & CRP, as well as a normal uric acid level. The antibiotics were discontinued and she was started on IV salumederol 40 mg Q8. Steroids were tapered over her course. On 12/12 patient had an episode of hypoxia. She was given 1 amp albuterol neb, and a repeat CXR was done (results above). Patient was then satting 97% on room air. During this episode she had no symptoms of SOB, infection, tachypnea, tachycardia. Post Hospital Course- Patient was discharged to [facility]. She will f/u with her PCP and Rheumatology within 1 week. She will continue to taper her steroids over the next 4 days. She was discharged on PO prednisone 20 mg. This is her schedule for taper: -12/13- Prednisone 20 mg (2 tablets) -12/14- Prednisone 20 mg (2 tablets) -12/15- Prednisone 10 mg (1 tablet) -12/16- Prednisone 10 mg (1 tablet) -12/17- STOP Minutes to complete discharge: 30 Discharge Summary Reason For Visit: SEPSIS; END STAGE RENAL DISEASE; DIALYSIS Current Active Problems Agitated (Acute) Sepsis (Acute) Dementia (Chronic) ESRD needing dialysis (Chronic) Hyperlipidemia (Chronic) Hypertension (Chronic) Condition: Stable - Instructions Diet, Activity, Other Instructions: You were in the hospital for severe pain in many of your joints (hand, knees, and ankles). Please follow up with Dr. Palacios in 1 week. Please follow up with Dr. Barth ([employer]) in 1 week. Please continue dialysis every Friday, Friday, Friday. Start taking prednisone for 1 week. This is the schedule you should follow: -12/13- Prednisone 20 mg (2 tablets) -12/14- Prednisone 20 mg (2 tablets) -12/15- Prednisone 10 mg (1 tablet) -12/16- Prednisone 10 mg (1 tablet) -12/17- STOP Continue taking your home medications -Nifedipine ER 60 mg by mouth daily -Mirtazapine 7.5 mg by mouth at night -Furosemide 40 mg by mouth daily -Atorvastatin 10 mg by mouth daily. Please follow with physical therapy at home. If you have any chest pain, shortness of breath, or any new symptoms please come back to the hospital immediately. Referrals: Maxi Palacios MD [Primary Care Provider] - Melvin Barth MD [Staff Physician] - Disposition: [facility] - Home Medications Comprehensive Discharge Medication List: Ambulatory Orders Nifedipine ER [Procardia XL -] 60 mg PO DAILY 12/05/16 Prednisone 10 mg PO DAILY #6 tablet 12/12/16 This patient is new to me today: No Emergency Visit: No Critical Care patient: No - Discharge Referral Referred to [facility] No
--- NOTE | 2016-12-12 14:40 | PN ---
Progress Note, Physician History of Present Illness: Pt seen and examined at bedside. She is awake and appears comfortable. She tolerated HD yesterday. She denies shortness of breath. - Current Medication List Current Medications: Active Medications Atorvastatin Calcium (Lipitor -) 10 mg PO HS [facility] Last Admin: 12/11/16 21:41 Dose: 10 mg Furosemide (Lasix -) 40 mg PO DAILY [facility] Last Admin: 12/12/16 11:01 Dose: 40 mg Heparin Sodium (Porcine) (Heparin -) 5,000 unit SQ Q8H-IV [facility] Last Admin: 12/12/16 11:02 Dose: 5,000 unit Mirtazapine (Remeron -) 7.5 mg PO HS [facility] Last Admin: 12/11/16 21:41 Dose: 7.5 mg Multivit/Ca Carb/B Cmplx/FA/Prenat (Nephro-Cynthia -) 1 tablet PO DAILY [facility] Last Admin: 12/12/16 11:01 Dose: 1 tablet Nifedipine (Procardia Xl -) 60 mg PO DAILY [facility] Last Admin: 12/12/16 11:01 Dose: 60 mg Prednisone (Deltasone -) 20 mg PO DAILY [facility] Last Admin: 12/12/16 11:02 Dose: 20 mg - Objective Vital Signs: Vital Signs Temperature 98.1 F 12/12/16 10:23 Pulse Rate 74 12/12/16 10:23 Respiratory Rate 18 12/12/16 10:23 Blood Pressure 143/70 12/12/16 10:23 O2 Sat by Pulse Oximetry (%) 95 12/12/16 09:00 Constitutional: Yes: Calm Eyes: Yes: Conjunctiva Clear HENT: Yes: Atraumatic Neck: Yes: Supple Cardiovascular: Yes: S1, S2 Gastrointestinal: Yes: Normal Bowel Sounds, Soft Genitourinary: Yes: WNL Musculoskeletal: Yes: WNL Edema: No Neurological: Yes: Oriented Psychiatric: Yes: Oriented Labs: CBC, BMP 12/12/16 10:10 12/10/16 06:20 Problem List - Problems (1) ESRD needing dialysis Code(s): N18.6 - END STAGE RENAL DISEASE (2) Hypertension Code(s): I10 - ESSENTIAL (PRIMARY) HYPERTENSION Qualifiers: Hypertension type: secondary to other renal disorders Qualified Code(s) : I15.1 - Hypertension secondary to other renal disorders; N28.89 - Other specified disorders of kidney and ureter Assessment/Plan Current Medications Generic Name Dose Route Start Last Admin Trade Name No PRN Reason Stop Dose Admin Atorvastatin Calcium 10 mg 12/05/16 22:00 12/11/16 21:41 Lipitor - PO 10 mg HS [facility] Administration Furosemide 40 mg 12/06/16 10:00 12/12/16 11:01 Lasix - PO 40 mg DAILY [facility] Administration Heparin Sodium (Porcine) 5,000 unit 12/06/16 02:00 12/12/16 11:02 Heparin - SQ 5,000 unit Q8H-IV [facility] Administration Mirtazapine 7.5 mg 12/05/16 22:00 12/11/16 21:41 Remeron - PO 7.5 mg HS [facility] Administration Multivit/Ca Carb/B Cmplx/FA/Prenat 1 tablet 12/09/16 10:00 12/12/16 11:01 Nephro-Cynthia - PO 1 tablet DAILY [facility] Administration Nifedipine 60 mg 12/06/16 10:00 12/12/16 11:01 Procardia Xl - PO 60 mg DAILY [facility] Administration Prednisone 20 mg 12/12/16 08:37 12/12/16 11:02 Deltasone - PO 20 mg DAILY [facility] Administration Impression 1. ESRD 2. HTN 3. hyperlipidemia 4. nephrolithiasis 5. anemia 6. agitation Plan - pt tolerated HD yesterday - she has HD set up as outpt tomorrow - no acute change in management from renal perspective - follow up mary, results pending - taper steroids as tolerated - will follow Dr Richmond
[2016-12-12 15:54] VITALS: PULSE 80; TEMP 97.9
== END 2016-12-12 16:00 | DRG 553 ==
LOC: JER 12:48 → JERBED 17:35 → J5S 19:13
PROVIDERS: ADMIT Internal Medicine; ATTEND Internal Medicine
PROC: 5A1D60Z (ICD-10-PCS; principal; 2016-12-06)
DX: M1A.9XX1 Chronic gout, unspecified, with tophus (tophi) (principal); N18.6 End stage renal disease; I12.0 Hypertensive chronic kidney disease with stage 5 chronic kidney disease or end stage renal disease; E87.1 Hypo-osmolality and hyponatremia; Z99.2 Dependence on renal dialysis; E78.00 Pure hypercholesterolemia, unspecified; F03.90 Unspecified dementia, unspecified severity, without behavioral disturbance, psychotic disturbance, mood disturbance, and anxiety; F32.9 Major depressive disorder, single episode, unspecified; M25.562 Pain in left knee; M25.561 Pain in right knee; D64.9 Anemia, unspecified; N20.0 Calculus of kidney; R45.1 Restlessness and agitation; R09.02 Hypoxemia; Z79.52 Long term (current) use of systemic steroids
CPT/HCPCS: 36415; 71010-TC; 73130-TC-RT; 73560-TC-LT; 73560-TC-RT; 73610-TC-LT; 73610-TC-RT; 80048; 80053; 83605; 83735; 84100; 84550; 85025; 85027; 85651; 86038; 86140; 86431; 86704; 86706; 86708; 86803; 87040; 87340; 93005; 93010; 93306-TC; 96365; 97116-GP; 97161-GP; 99281-25; 99283-25; J1644